=== PATIENT | male | born 1960 | race African-American/Black ===

== ENCOUNTER 2016-10-21 13:19 | Inpatient (IN) ==
[2016-10-21] MEDS ORDERED: SODIUM CHLORIDE 0.9% 1,000 ML IV STA (13:24)
--- NOTE | 2016-10-21 13:33 | Emergency Department Note ---
Syed Matt Brittany, am scribing for, and in the presence of, Lj Tamayo MD 13:32. Belkis Matt James D, MD, personally performed the services described in this documentation, ascribed by Hortensia Lynch in my presence, and it is both accurate and complete 333 . Arrival - Arrival Chief Complaint: Seizure Stated Complaint: altered loc ED Nursing Triage Note: Brought in by EMS-transfer from [facility] for further evaluation of altered LOC and seizure. EMS reports patient was seizing upon their arrival, resp 4bpm. Patient intubated with 7.0ETT 22cm@lip. Mode of Arrival: Stretcher Limitations: Altered Mental Status Source: EMS, RN Notes Reviewed - History of Present Illness HPI Narrative: Patient is a 56 y/o black male presenting to the ED by EMS from [facility] for further evaluation of AMS and Seizures. Per EMS report patient was last seen by family and friends in his normal state around midnight last night. EMS states that upon their arrival to patient he was still seizing and had RR of 4 breaths per minute, unknown time of onset of seizures. Prior to transfer patient was given Thiamine, Dilantin, and Zosyn. En route patient was intubated by EMS. EMS reports that patient has a history significant for ETOH abuse and tobacco smoker about 2 packs per day. In room patient smells of ETOH. Patient is nonverbal and nonreactive to verbal or painful stimuli. Patient has 2 mm minimally reactive pupils. Allergies/Adverse Reactions: Allergies Allergy/AdvReac Type Severity Reaction Status Date / Time No Known Allergies Allergy Verified 10/21/16 13:31 Home Medications: Home Medications Medication Instructions Recorded Confirmed Type No Known Home Medications [No 10/21/16 10/21/16 History Known Home Medications] Review of System - Review of System ROS unobtainable: due to mental status 12 point system: reviewed and no additional remarkable complaints except as stated Medical,Surgical,& Family Hx - Medical History Psychological: History of: Psychiatric/Substance Abuse Tx (ETOH abuse) - Social History Smoking Status: Smoker, status unknown Frequency of Alcohol Use: Frequently Type of Drug Use: Unknown Exam Vital Signs: Vital Signs Temperature 96.0 F L 10/21/16 14:39 Pulse Rate 106 H 10/21/16 16:08 Respiratory Rate 14 10/21/16 16:08 Blood Pressure 172/100 10/21/16 14:39 O2 Sat by Pulse Oximetry 100 10/21/16 16:08 GENERAL: This is a acutely ill appearing black male on mechanical ventilation with endotracheal tube present, in no apparent distress. VITAL SIGNS: Reviewed HEENT: Head is atraumatic and normocephalic. Pupils are 2 mm and equal. Extraocular movements are intact. Oropharynx is benign with moist mucous membranes. Poor dentition. NECK: Neck is soft and supple without tenderness. There are no masses. There is no lymphadenopathy. LUNGS: Lungs are clear to auscultation. Chest rises symmetrically. There is no chest wall tenderness. CV: Heart is regular rate and rhythm without murmurs rubs or gallops. ABDOMEN: Abdomen is soft, nontender to palpation. There are no abdominal abnormal masses palpated. There is no organomegaly. Bowel sounds are present and active. SKIN: Skin is warm and dry. No rash. EXTREMITIES: Patient has full range of motion without tenderness. There is no pedal edema. NEUROLOGIC: Arousable to deep tactile stimulus. Patient has some purposeful movement with painful stimuli. Course - Consultations Consultation #1: Discussed with hospitalist. Patient will be admitted to their service. Time: 14:01 Procedures - EJ/Peripheral Line Neck L Consent Obtained: verbal consent Time Out Performed: Yes Skin Cleansed in Sterile Fashion: Yes Size: 18 IV Secured and Dressing Applied: Yes Patient Tolerated Procedure: well Additional Comments: Blood aspirated without difficulty. IV flushed well. - Foreign Body Removal Consent Obtained: verbal consent Time Out Performed: Yes Site: oral Description of foreign body: other (Free molar from the posterior oropharynx was removed with forceps. This was performed under direct visualization with glide scope.) Sedation/Analgesia: midazolam Technique: removal with forceps Confirmed by:: direct visualization Complications: none Post-procedure exam: normal BP, normal HR, normal O2 sat Neurovascular: no change from pre-procedure Results - Labs CBC & BMP: 10/21/16 14:56 10/21/16 14:56 Lab Results: I have reviewed the patients labs Labs: Laboratory Tests 10/21/16 10/21/16 13:24 14:24 ABG pH 7.196 L* ABG pCO2 51.3 H ABG pO2 89.6 ABG HCO3 17.2 L ABG Total CO2 17.6 L ABG O2 Saturation 93.0 L ABG Base Excess -9.1 L FiO2 100.00 Urine pH 6.0 Ur Specific Rodney 1.009 Urine WBC <1 Laboratory Tests 10/21/16 10/21/16 14:24 14:56 WBC 4.2 Hgb 14.5 Hct 40.6 L Plt Count 175 Urine Opiates Screen Negative Ur Barbiturates Screen Negative Ur Phencyclidine Scrn Negative U Amphetamine/Methamph Negative U Benzodiazepines Scrn Negative U Cocaine Metab Screen Negative U Cannabinoids Screen Negative Laboratory Tests 10/21/16 10/21/16 14:24 14:56 Urine Opiates Screen Negative Ur Barbiturates Screen Negative Phenytoin 9.0 L Ur Phencyclidine Scrn Negative U Amphetamine/Methamph Negative U Benzodiazepines Scrn Negative U Cocaine Metab Screen Negative U Cannabinoids Screen Negative Laboratory Tests 10/21/16 13:24 ABG pH 7.196 L* ABG pCO2 51.3 H ABG pO2 89.6 ABG HCO3 17.2 L ABG Total CO2 17.6 L ABG O2 Saturation 93.0 L ABG Base Excess -9.1 L FiO2 100.00 - EKG EKG results: interpreted by ERMD - Impressions EKG: Sinus tachycardia with rate of 107, nonspecific ST-T wave changes, normal axis. - Diagnostic Findings Procedure: Chest x-ray: image reviewed by me (Opacification of the right hemithorax consistent with aspiration pneumonia), CT: image reviewed by me (CT head: No acute intracranial lesion or hemorrhage.) Critical Care Time Critical Care Time: Yes Total Critical Care Time: 60 Attestation: Patient was placed on Versed infusion. Vent management orders initially written. Foreign body removed from the posterior oropharynx. Disposition Clinical Impression: Seizure, Aspiration into airway, Alcohol abuse, Alcoholism Case discussed with: patient Disposition: Still a Patient Condition: Critical Time of Disposition: 13:35
[2016-10-21] MEDS ORDERED: VECURONIUM 10 MG VIAL IV ONE (13:34)
[2016-10-21] MEDS ORDERED: VECURONIUM 10 MG VIAL IV STA (13:35)
[2016-10-21] MEDS ORDERED: MIDAZOLAM 2 MG/2 ML VIAL ONE (13:50)
--- NOTE | 2016-10-21 13:54 | CT Report ---
Referring physician: Lj Tamayo Exam: CT brain without contrast Date: 10/21/2016 Comparison: 10/21/2016 Reason: Alteration of consciousness Technique: Axial images of the head were obtained without the use of contrast. Total DLP was 942.4 mGy*cm. Findings: No hydrocephalus or midline shift is present. There is no evidence of an acute infarction, recent intracranial hemorrhage or abnormal mass effect. Minimal cerebral atrophy with arterial calcifications. The osseous structures appear intact. The mastoid air cells are clear. Minimal mucosal thickening in the paranasal sinuses. Impression: No acute intracranial abnormality is identified. Minimal atrophy and sinusitis. The CT exam was performed using one or more of the following dose reduction techniques: Automated exposure control and adjustment of the mA and/or kV according to patient size. PROCEDURE INTERPRETED AT [facility] DEPARTMENT OF RADIOLOGY Final Report Signed by: Dr. Juany Cooper
--- NOTE | 2016-10-21 14:03 | XRay Report ---
Exam: XR chest 1V portable Indication: Altered mental status, confusion Comparison study: None available Findings: Cardiac silhouette images are contours appear grossly similar to prior. The endotracheal tube terminates approximately 4 simulations marialuisa, in similar position as prior. Diffuse patchy airspace opacities throughout the right lung are new from the prior study and suggestive of developing infiltrates and/or asymmetric pulmonary edema. The left lung remains relatively clear. There is no pneumothorax. No significant pleural effusion is identified. Osseous structures appear stable from prior. Elevation of the right hemidiaphragm is noted. Impression: Prominent opacity throughout the right lung may represent atelectasis, developing infiltrates or asymmetric pulmonary edema. Stable position of endotracheal tube. PROCEDURE INTERPRETED AT [facility] DEPARTMENT OF RADIOLOGY Final Report Signed by: Amado Payan
[2016-10-21] MEDS: MIDAZOLAM 100 MG in SODIUM CHLORIDE 0.9% 80 ML IV SCH (14:05)
[2016-10-21 14:38] LABS: ABG Base Excess -9.1 MMOL/L (-2.5-2.5); ABG HCO3 17.2 MMOL/L (20-26); ABG PCO2 51.3 MM HG (35-48); ABG PO2 89.6 MM HG (80-95); ABG TCO2 17.6 MMOL/L (23-27); Pt O2 Delivery Device Ventilator
[2016-10-21] MEDS ORDERED: PIPERACILLIN/TAZOBACTAM 3,375 MG in SODIUM CHLORIDE 0.9% 100 ML IV STA (14:42)
[2016-10-21] MEDS ORDERED: ALBUTEROL 2.5 MG/3 ML NEB RESP TX STA (14:43)
[2016-10-21] MEDS ORDERED: DEXAMETHASONE 10 MG/1 ML VIAL IV STA (14:43)
[2016-10-21] MEDS ORDERED: SODIUM CHLORIDE 0.9% 100 ML IV ONE (14:46)
[2016-10-21] MEDS ORDERED: PIPERACILLIN/TAZOBACTAM 3,375 MG VIAL IV ONE (14:46)
[2016-10-21] MEDS ORDERED: DEXAMETHASONE 10 MG/1 ML VIAL ONE (14:46)
[2016-10-21 14:47] LABS: Apearance,Urine CLEAR (Clear); Bilirubin,Urine Negative (Negative); Blood, Urine Small mg/dL (Negative); Glucose,Urine (UA) 150 mg/dL (Negative); Ketones,Urine 5 mg/dL (Negative); Nitrite,Urine Negative (Negative); Protein,Urine Negative; Squamous Epithelial Cell,Urine Occasional /HPF (0-10); Urine Color Straw (Yellow); Urine Specific Gravity 1.009 (1.001-1.035); Urine Urobilinogen < 2.0 EU/DL (0.2-1.0); WBC,Urine <1 /HPF (0-6)
[2016-10-21 14:48] LABS: ABG PH 7.196 (7.35-7.45)
[2016-10-21 14:57] LABS: Barbiturates Screen,Urine Negative (Negative); Benzodiazepines Screen,Urine Negative (Negative); Cannabinoid Screen,Urine Negative (Negative); Opiate Screen,Urine Negative (Negative); Phencyclidine Screen,Urine Negative (Negative)
[2016-10-21 15:11] LABS: Basophils % 0.2 % (0.0-0.8); Hematocrit 40.6 VOL% (42.0-52.0); Hemoglobin 14.5 GM/DL (14.0-18.0); Immature Granulocytes % 0.2 %; Immature Granulocytes Absolute 0.01 #; Lymphocytes # 0.4 10*3/uL (1.4-4.0); Lymphocytes % 8.6 % (21.2-54.2); Mean Corpuscular HGB Conc 35.7 GM/DL (32-36); Mean Corpuscular Hemoglobin 42 PG (27-34); Mean Corpuscular Volume 116.7 FL (87-102); Mean Platelet Volume 9.9 FL (9.6-12.0); Monocytes # 0.1 10*3/uL (0.11-0.8); Monocytes % 2.1 % (1.7-12.7); NRBC # 0.03 10*3/uL; Neutrophils # 3.7 10*3/uL (1.4-7.4); Neutrophils % 88.9 % (38.7-73.9); Platelet Count 175 T/CUMM (130-400); Red Blood Count 3.48 MC/CUMM (3.8-5.5); Red Cell Distribution Width 14.2 % (9.3-17.3); White Blood Count 4.2 T/CUMM (4-12)
--- NOTE | 2016-10-21 15:26 | EKG Report ---
Stationary ECG Study 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
[2016-10-21 15:31] LABS: INR 1.1; PT Patient Result 12.2 SECS; Partial Thromboplastin Time 26.5 SECS (0-40)
[2016-10-21 15:33] LABS: Ammonia 15 UMOL/L (11-32)
--- NOTE | 2016-10-21 15:45 | Hospitalist History & Physical ---
Assessment and Plan (1) Aspiration pneumonia Status: Acute Current Visit: Yes (2) Hypoglycemia Status: Acute Current Visit: Yes (3) Respiratory failure Status: Acute Current Visit: Yes (4) Alcohol abuse Status: Acute Current Visit: Yes (5) Alcoholism Status: Acute Current Visit: Yes (6) Aspiration into airway Status: Acute Current Visit: Yes (7) Seizure Status: Acute Assessment and plan: Plan for this patient will be continue ventilator support for this patient continue with IV antibiotics for what appears to be an aspiration pneumonia. Will consult pulmonary with help for the vent. Will consult neurology for the seizure disorder and I suspect anoxic brain injury. Discussed the care with the family told him that will be 48-72 hours to we know which direction this patient will be heading. He is in critical condition. He is an alcoholic this could have been alcohol withdrawal seizure. He had been sick for a little while and did not seek medical attention according to the information given to the outside facility. Current Visit: Yes History of Present Illness Chief complaint: Transfer from outside facility seizures respiratory failure History of present illness: Mr. Gonzalez is a 56 year old male with only known past medical history significant for a bout with Feliciano Farias years ago presented to our ER as a transfer from outside facility. Patient is a heavy alcoholic he lives with her brother. According to the story I got from family his brother heard a noise and found him on the ground. He went and and found a neighbor to come see the man and when the neighbor came in he was on the floor appearing to actively be seizing. He was had loss of urinary function and they called EMS. When EMS arrived he was still seizing at that time and had a respiratory rate of 4 breaths per minute. Patient has no history of seizures in the past. And we do not know exactly how long he been down. Patient was intubated in the field by EMS. At the outside facility he was given Zosyn saline bolus sodium bicarb total of 4 Ativan an amp of D50 and loaded with Dilantin at 11 AM. I was consulted to admit the patient. Patient is currently on a Versed infusion and unresponsive he has minimally reactive pupils. Home Medications Medication Instructions Recorded Confirmed Type No Known Home Medications [No 10/21/16 10/21/16 History Known Home Medications] Allergies Allergy/AdvReac Type Severity Reaction Status Date / Time No Known Allergies Allergy Verified 10/21/16 13:31 Medical,Surgical,& Family Hx - Medical History Psychological: History of: Psychiatric/Substance Abuse Tx (ETOH abuse) - Surgical History Surgical History: noncontributory (No known surgeries) - Family History Family History: Reports;: Family Cancer, Family Diabetes - Social History Smoking Status: Current every day smoker Frequency of Alcohol Use: Frequently Type of Drug Use: Marijuana ROS unobtainable: due to endotracheal tube, due to mental status Exam - Constitutional Vitals: Period Temp Pulse Resp BP Sys/Wilkerson Pulse Ox Last 24 Hr 93.9 F-96.0 F 109-110 12-12 147-172/100-112 100-100 General appearance: no acute distress (Patient is sedated on the vent) - Head Head exam: Present: normal inspection - Eye Eye exam: Present: other (Pupils are minimal but equal) - ENT ENT exam: Present: other (Patient has ET tube in place patient has poor dentition and patient is bleeding from his gums) - Neck Neck exam: Present: normal inspection - Respiratory Respiratory exam: Present: rhonchi (Diffusely) - Cardiovascular Cardiovascular exam: Present: tachycardia - GI/Abdominal GI/Abdominal exam: Present: normal bowel sounds. Absent: tenderness, rebound - Extremities Exam Extremities exam: Present: normal inspection - Back Exam Back exam: Present: normal inspection - Neurological Exam Neurological exam: Present: altered - Psychiatric Psychiatric exam: Present: other - Skin Skin exam: Present: normal color Results - Labs CBC & BMP: 10/21/16 14:56 Labs: Labs from outside facility sodium 141 potassium 3.7 chloride 99 bicarb 13 creatinine 1.0 BUN 5 calcium 8.9 glucose 52 total bili 0.7 total protein 6.7 albumin 3.7 alk phos 104 a LT 35 AST 77 white count 13.95 at outside facility on our labs is 4.2 hemoglobin is 14.6 and hematocrit 41.3 platelet count 221
[2016-10-21] MEDS ORDERED: PHENYTOIN INJ 500 MG in SODIUM CHLORIDE 0.9% 100 ML IV STA (15:47)
[2016-10-21 15:51] LABS: Alanine Aminotransferase 28 U/L (16-61); Albumin 2.8 G/DL (3.4-5.0); Alkaline Phosphatase 86 U/L (45-117); Aspartate Amino Transferase 56 U/L (0-37); Blood Urea Nitrogen 5 MG/DL (7-18); Calcium 7.4 MG/DL (8.5-10.1); Glucose 161 MG/DL (74-106); Osmolality,Calculated 291.4 MOS/KG (273-304); Potassium 3.6 MMOL/L (3.5-5.1); Sodium 147 MMOL/L (136-145); Thyroid Stimulating Hormone 0.341 uIU/ml (0.358-3.74); Total Protein 5.5 G/DL (6.4-8.3)
[2016-10-21] MEDS ORDERED: ONDANSETRON 4 MG/2 ML VIAL IV PRN (15:51)
[2016-10-21] MEDS ORDERED: ALBUTEROL 2.5 MG/3 ML NEB RESP TX PRN (15:51)
[2016-10-21] MEDS ORDERED: ALBUTEROL/IPRATROPIUM 3 ML NEB RESP TX PRN (15:51)
[2016-10-21] MEDS ORDERED: PHENYTOIN 250 MG/5 ML VIAL IV ONE (15:52)
[2016-10-21 15:59] LABS: ABG Base Excess -7.1 MMOL/L (-2.5-2.5); ABG HCO3 18.7 MMOL/L (20-26); ABG Oxygen Saturation 96.3 % (95-100); ABG PH 7.271 (7.35-7.45); ABG TCO2 17.3 MMOL/L (23-27)
[2016-10-21] MEDS: SODIUM CHLORIDE 0.9% 1,000 ML IV SCH (19:00)
[2016-10-21] MEDS: ENOXAPARIN 40 MG/0.4 ML SYRINGE SUBCUT SCH (20:17)
[2016-10-21] MEDS: PIPERACILLIN/TAZOBACTAM 3,375 MG in SODIUM CHLORIDE 0.9% 100 ML IV SCH (23:45)
[2016-10-22] MEDS: PHENYTOIN 100 MG/2 ML VIAL IV SCH ×4 (00:03→23:45)
[2016-10-22 04:01] LABS: ABG Base Excess -5.7 MMOL/L (-2.5-2.5); ABG HCO3 18.3 MMOL/L (20-26); ABG Oxygen Saturation 99.5 % (95-100); ABG PCO2 31.6 MM HG (35-48); ABG PO2 245.2 MM HG (80-95); ABG TCO2 19.2 MMOL/L (23-27); Allen Test Positive; Pt O2 Delivery Device Ventilator
[2016-10-22] MEDS: PIPERACILLIN/TAZOBACTAM 3,375 MG in SODIUM CHLORIDE 0.9% 100 ML IV SCH ×3 (06:16→23:45)
--- NOTE | 2016-10-22 06:29 | Pulmonology Consult Note ---
Assessment and Plan (1) Seizure Status: Acute Assessment and plan: The patient was found obtunded and apparently had a seizure. Neurology will evaluate. Current Visit: Yes (2) Alcoholism Status: Acute Assessment and plan: Patient apparently has a history of alcohol abuse. Current Visit: Yes (3) Hypoglycemia Status: Acute Assessment and plan: Patient's glucoses better now. Current Visit: Yes (4) Respiratory failure Status: Acute Assessment and plan: Patient is on the ventilator with pneumonia now. We will proceed with a bronchoscopy. Current Visit: Yes (5) Aspiration pneumonia Status: Acute Assessment and plan: Patient has a consolidated right lower lobe and looks like he has aspiration pneumonia. Current Visit: Yes History of Present Illness Chief complaint: Ventilator History of present illness: Mr. Gonzalez is a 56 year old black male that apparently has a history of alcohol abuse was found at home poorly responsive. He apparently had been having seizures. Paramedics were called and he was ultimately intubated. He is now on the ventilator in the ICU. He does have right lower lobe consolidation. He has been responding and has required restraints. His oxygenation is better on the ventilator. He never has had seizures before. 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 He apparently is a smoker also. Home Medications Medication Instructions Recorded Confirmed Type No Known Home Medications [No 10/21/16 10/21/16 History Known Home Medications] Allergies Allergy/AdvReac Type Severity Reaction Status Date / Time No Known Allergies Allergy Verified 10/21/16 13:31 ROS unobtainable: due to endotracheal tube (Unable to get any further history.) Exam (Pulmonay) H&P - Constitutional Vitals: Period Temp Pulse Resp BP Sys/Wilkerson Pulse Ox Last 24 Hr 96.9 F-98.2 F 97-108 12-25 87-150/56-100 96-100 General appearance: normal weight, no acute distress, other (Patient looks stable on the ventilator.) - Head Head exam: Present: normal inspection - Eye Eye exam: Present: other (He has bilateral arcus). Absent: scleral icterus Pupils: Present: dilated - ENT ENT exam: Present: normal exam, other (ET tube is in good position) - Neck Neck exam: Absent: lymphadenopathy, thyromegaly - Respiratory Respiratory exam: Present: decreased breath sounds (He has decreased breath sounds in the right base), rales, rhonchi - Cardiovascular Cardiovascular exam: Present: regular rate and rhythm, tachycardia. Absent: gallop, systolic murmur - GI/Abdominal GI/Abdominal exam: Present: normal bowel sounds, soft. Absent: ascites, organomegaly, tenderness - Extremities Exam Extremities exam: Absent: calf tenderness, edema - Neurological Exam Neurological exam: Present: other (He still has sedation on board) - Skin Skin exam: Present: warm, dry Medical,Surgical,& Family Hx - Medical History Psychological: History of: Psychiatric/Substance Abuse Tx (ETOH abuse) - Family History Family History: Reports;: Family Cancer, Family Diabetes - Social History Smoking Status: Smoker, status unknown Frequency of Alcohol Use: Frequently Type of Drug Use: Unknown Results - Labs CBC & BMP: 10/21/16 14:56 10/21/16 14:56 Labs: His PO2 is 245 with a PCO2 31 and a pH of 7.38 - Diagnostic Findings Procedure: Chest x-ray: image reviewed by me, report reviewed by me (Chest x- ray shows a consolidated right lower lobe)
--- NOTE | 2016-10-22 07:15 | XRay Report ---
Exam: XR chest 1V portable Indication: intubated, ventilator Comparison study: 10/21/2016 Findings: Endotracheal tube and esophagogastric tube are in similar positions. Cardiomediastinal silhouette appears within normal limits. There has been significant decrease in opacities throughout the right lung. The left lung remains probably clear with minimal basilar opacities. There is no pneumothorax. Osseous structures appear stable. Impression: Stable position of endotracheal and esophagogastric tubes. Markedly improved aeration throughout the right lung with residual perihilar and basilar opacities may represent atelectasis and/or underlying interstitial edema changes and residual small right pleural effusion. PROCEDURE INTERPRETED AT [facility] DEPARTMENT OF RADIOLOGY Final Report Signed by: Amado Payan
[2016-10-22 07:58] LABS: Basophils % 0.1 % (0.0-0.8); Hematocrit 36.5 VOL% (42.0-52.0); Hemoglobin 13.4 GM/DL (14.0-18.0); Immature Granulocytes % 1.3 %; Immature Granulocytes Absolute 0.16 #; Lymphocytes # 0.6 10*3/uL (1.4-4.0); Lymphocytes % 4.6 % (21.2-54.2); Mean Corpuscular HGB Conc 36.7 GM/DL (32-36); Mean Corpuscular Hemoglobin 42 PG (27-34); Mean Corpuscular Volume 114.8 FL (87-102); Mean Platelet Volume 10.3 FL (9.6-12.0); Monocytes # 0.3 10*3/uL (0.11-0.8); Monocytes % 2.5 % (1.7-12.7); Neutrophils # 11.5 10*3/uL (1.4-7.4); Neutrophils % 91.5 % (38.7-73.9); Platelet Count 121 T/CUMM (130-400); Red Blood Count 3.18 MC/CUMM (3.8-5.5); Red Cell Distribution Width 14.1 % (9.3-17.3); White Blood Count 12.6 T/CUMM (4-12)
[2016-10-22] MEDS: SODIUM CHLORIDE 0.9% 1,000 ML IV SCH ×2 (08:11→20:57)
[2016-10-22 08:18] LABS: Band Neutrophils 16 % (0-10); Hypochromasia 1+; Lymphocytes 3 % (20-55); Metamyelocytes 1 %; Myelocytes 1 %; Platelet Estimate Normal; Segmented Neutrophils 78 % (50-85); Total Cells Counted 100
[2016-10-22 08:19] LABS: Ovalocytes Slight
--- NOTE | 2016-10-22 08:24 | Operative Note ---
Date of procedure: 10/22/16 Pre-op diagnosis: Aspiration pneumonia Post-op diagnosis: same Procedure: The patient is a 56-year-old black man that came in on the ventilator. He has right lower lobe consolidation and likely aspirated. Will proceed with a bronchoscope to clear airways. Procedure: Patient is on the ventilator and is sedated with Versed. The fiberoptic bronchoscope was passed to the ET tube into the airways. The bronchopulmonary segments were identified and specimens obtained. Findings: The ET tube is in good position and the trachea. The main bronchi are unremarkable. There are some thick secretions in the right lower lobe that were washed and cleared and sent for culture. There is no signs of foreign bodies or obstruction. The right upper lobe, right middle lobe, and right lower lobe are all open. The left upper lobe, left lower lobe, and lingular open. Once the airways were clear the procedure was stopped. He coughed a lot but tolerated it well. Impression: Right lower lobe pneumonia from aspiration. Plan: We will continue antibiotics and respiratory therapy. Anesthesia: conscious sedation Surgeon / Physician: Nishant Mishra Estimated blood loss: none Specimens: other (Washings were sent for culture) Condition: critical Disposition: ICU Results - Labs CBC & BMP: 10/22/16 07:53 10/21/16 14:56 Discharge Plan - Discharge Medications No Action No Known Home Medications [No Known Home Medications] - Follow Up or Referral - Forms/Instructions
[2016-10-22 08:33] LABS: Albumin 2.4 G/DL (3.4-5.0); Bilirubin,Total 1.3 MG/DL (0.2-1.0); Calcium 7.7 MG/DL (8.5-10.1); Magnesium 1.9 MG/DL (1.8-2.4); Osmolality,Calculated 291.6 MOS/KG (273-304); Potassium 4.1 MMOL/L (3.5-5.1); Total Protein 5.1 G/DL (6.4-8.3)
[2016-10-22] MEDS ORDERED: THIAMINE 200 MG/2 ML VIAL IV SCH (09:00)
[2016-10-22] MEDS ORDERED: PANTOPRAZOLE 40 MG TABLET PO SCH (09:00)
--- NOTE | 2016-10-22 09:11 | Hospitalist Progress Note ---
Assessment and Plan (1) Aspiration pneumonia Status: Acute Assessment and plan: Aspiration pneumonia suspected and has been on Zosyn noted elevated white count today we will continue to monitor patient is status post bronchoscopy Current Visit: Yes (2) Respiratory failure Status: Acute Assessment and plan: Followed by Dr. Mishra and oxygenating well Current Visit: Yes (3) Seizure Status: Acute Assessment and plan: Patient has a reported seizure on presentation without any past history of seizure disorder I am not sure it was because of hypoxia. Neurology to evaluate patient Current Visit: Yes (4) Alcohol abuse Status: Acute Assessment and plan: Patient with history of alcohol abuse. He has been on sedation at present. Ativan order is in place for withdrawal symptoms Current Visit: Yes Hospitalist: Subjective Interval history: Mr. Gonzalez is a 56-year-old male who was on ventilator and sedated and unable to provide subjective information. Chart review he has history of Feliciano Farias years ago and history of alcohol abuse he was admitted with the unresponsiveness and had seizure he required intubation and placed on Augmentin mechanical ventilator. No history of past seizure. He was noted to have opacified right lung with atelectasis which was improved yesterday on x-ray. He underwent bronchoscopy performed by Dr. Mishra with the clearing of the airways. He has been afebrile Exam - Constitutional Vitals: Period Temp Pulse Resp BP Sys/Wilkerson Pulse Ox Last 24 Hr 96.9 F-98.2 F 97-108 12-25 87-150/56-100 96-100 - Respiratory Respiratory exam: Present: clear to auscultation bilaterally (equal air entry). Absent: rhonchi - Cardiovascular Cardiovascular exam: Present: regular rate and rhythm. Absent: tachycardia - GI/Abdominal GI/Abdominal exam: Present: normal bowel sounds, soft. Absent: distended - Extremities Exam Extremities exam: Absent: edema - Neurological Exam Neurological exam: Present: other (on ventilator sedated) Results - Labs CBC & BMP: 10/22/16 07:53 10/22/16 07:53 Lab Results: I have reviewed the past 24 hour labs
[2016-10-22] MEDS ORDERED: DEXTROSE 50% 25 GM/50 ML VIAL IV PRN (09:25)
[2016-10-22] MEDS ORDERED: GLUCAGON 1 MG VIAL IM PRN (09:25)
[2016-10-22] MEDS: FOLIC ACID 1 MG TABLET PO SCH (11:34)
[2016-10-22] MEDS: MULTIVITAMIN (CENTRUM) TABLET PO SCH (11:34)
[2016-10-22] MEDS: THIAMINE 100 MG TABLET PO SCH (11:34)
[2016-10-22] MEDS: PANTOPRAZOLE 40 MG VIAL IV SCH (11:54)
[2016-10-22] MEDS: INSULIN REGULAR 100 UNIT/ML SUBCUT SCH ×2 (12:41→18:24)
--- NOTE | 2016-10-22 15:56 | Neurology Consult Note ---
History of Present Illness History of present illness: Patient is unable to provide me any history. History basically obtained from the chart. Mr. Gonzalez is a 56 year old -[place] gentleman that apparently has a history of alcohol abuse was found at home poorly responsive. He apparently had been having seizures. The details of seizures are not available. Paramedics were called and he was ultimately intubated. He is now on the ventilator in the ICU. He does have pneumonia as well. He has been responding and has required restraints. His oxygenation is better on the ventilator. He never has had seizures before. 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 He apparently is a smoker also. No further history is available. He was loaded with Dilantin in the ER and continued. CT of the head revealed no acute abnormalities. Home Medications Medication Instructions Recorded Confirmed Type No Known Home Medications [No 10/21/16 10/21/16 History Known Home Medications] Allergies Allergy/AdvReac Type Severity Reaction Status Date / Time No Known Allergies Allergy Verified 10/21/16 13:31 ROS unobtainable: due to endotracheal tube Medical,Surgical,& Family Hx - Medical History Psychological: History of: Psychiatric/Substance Abuse Tx (ETOH abuse) - Family History Family History: Reports;: Family Cancer, Family Diabetes - Social History Smoking Status: Current every day smoker Frequency of Alcohol Use: Frequently Type of Drug Use: Unknown Exam - Constitutional Vitals: Period Temp Pulse Resp BP Sys/Wilkerson Pulse Ox Last 24 Hr 96.9 F-98.2 F 93-114 12-29 82-150/56-119 96-100 Exam: GENERAL: Patient is in no acute distress. NECK: Neck is supple. There is no JVD. No carotid bruits present. No thyroid masses. CVS: First and second heart sounds are normal. There is no S3 present. Regular rate and rhythm. RESPIRATORY: Lungs are clear to auscultation without any rales or rhonchi. ABDOMEN: Soft and non-tender. Bowel sounds are present. There is no hepatosplenomegaly. EXT: There is no palpable edema. Peripheral pulses are present. Skin: No rashes Central Nervous system: General: Sedated on vent Speech: None Comprehension: None Facial expressions: Normal Cranial Nerves: Pupils are equally reactive to light. Doll's head eye movements are positive. No facial asymmetry is seen. Gag is intact. Motor: Bulk and Tone is normal. Strength cannot be assessed Sensory: Cannot be assessed Reflexes: 1+ and symmetrical Cerebellar function: Cannot be assessed Toes: Equivocal Gait: Cannot be assessed Results - Labs CBC & BMP: 10/22/16 07:53 10/22/16 07:53 Assessment and Plan (1) New onset seizure Status: Acute Assessment and plan: This could very well be alcohol induced We will go ahead and do EEG if it is not done already. Continue Dilantin for now Check Dilantin level in the morning Thank you for the consult Current Visit: Yes
[2016-10-22] MEDS ORDERED: SODIUM CHLORIDE 0.9% 250 ML IV ONE (18:08)
[2016-10-22] MEDS: ENOXAPARIN 40 MG/0.4 ML SYRINGE SUBCUT SCH (18:24)
[2016-10-22] MEDS: MIDAZOLAM 100 MG in SODIUM CHLORIDE 0.9% 80 ML IV SCH (18:31)
[2016-10-22] MEDS: LORazepam 2 MG/1 ML VIAL IV PRN (19:47)
[2016-10-23] MEDS: INSULIN REGULAR 100 UNIT/ML SUBCUT SCH ×5 (00:29→23:29)
[2016-10-23] MEDS: LORazepam 2 MG/1 ML VIAL IV PRN ×2 (01:52→07:04)
[2016-10-23 03:34] LABS: ABG Base Excess -0.4 MMOL/L (-2.5-2.5); ABG HCO3 21.3 MMOL/L (20-26); ABG Oxygen Saturation 97.9 % (95-100); ABG PH 7.515 (7.35-7.45); ABG PO2 113.2 MM HG (80-95); ABG TCO2 22.1 MMOL/L (23-27); Allen Test Positive; Pt O2 Delivery Device Ventilator
[2016-10-23] MEDS ORDERED: SODIUM CHLORIDE 0.9% 250 ML IV ONE (03:53)
[2016-10-23 05:48] LABS: Basophils % 0.1 % (0.0-0.8); Hematocrit 31.9 VOL% (42.0-52.0); Immature Granulocytes % 4.4 %; Immature Granulocytes Absolute 0.64 #; Lymphocytes # 1.1 10*3/uL (1.4-4.0); Lymphocytes % 7.3 % (21.2-54.2); Mean Corpuscular HGB Conc 37.3 GM/DL (32-36); Mean Corpuscular Hemoglobin 42 PG (27-34); Mean Corpuscular Volume 111.9 FL (87-102); Mean Platelet Volume 11.3 FL (9.6-12.0); Monocytes # 0.5 10*3/uL (0.11-0.8); Monocytes % 3.4 % (1.7-12.7); NRBC # 0.03 10*3/uL; Neutrophils # 12.5 10*3/uL (1.4-7.4); Neutrophils % 84.8 % (38.7-73.9); Platelet Count 100 T/CUMM (130-400); Red Blood Count 2.85 MC/CUMM (3.8-5.5); Red Cell Distribution Width 14.2 % (9.3-17.3); White Blood Count 14.7 T/CUMM (4-12)
[2016-10-23 05:49] LABS: Hemoglobin 11.9 GM/DL (14.0-18.0)
[2016-10-23 05:54] LABS: Band Neutrophils 15 % (0-10); Lymphocytes 8 % (20-55); Metamyelocytes 2 %; Segmented Neutrophils 74 % (50-85); Total Cells Counted 100
[2016-10-23 05:55] LABS: Platelet Estimate Adequate; Target Cells Few
[2016-10-23 06:01] LABS: Calcium 7.8 MG/DL (8.5-10.1); Magnesium 2.1 MG/DL (1.8-2.4); Potassium 3.2 MMOL/L (3.5-5.1); Prealbumin 9.1 MG/DL (20-40)
[2016-10-23] MEDS: PIPERACILLIN/TAZOBACTAM 3,375 MG in SODIUM CHLORIDE 0.9% 100 ML IV SCH ×3 (06:34→23:49)
--- NOTE | 2016-10-23 07:40 | Pulmonology Progress Note ---
Pulmonary - PN: Subj Interval history: Patient is a 56-year-old black man that was found unresponsive at home. He is felt to be having seizures. He does have a history of alcohol abuse. He had to be intubated. He was felt that I have aspirated his right lower lobe pneumonia. His bronchoscopy did not show a lot of particulate matter or any obstruction. He is fairly stable on the ventilator and his oxygenation is better. He has not had any definite seizures. He is fairly stable at present. Exam (Progress Note) - Constitutional Vitals: Period Temp Pulse Resp BP Sys/Wilkerson Pulse Ox Last 24 Hr 96.9 F-98.3 F 87-114 12-28 70-148/49-119 92-100 Exam: General appearance: normal weight, no acute distress, other (Patient looks stable on the ventilator. He is responding a little better.) - Head Head exam: Present: normal inspection - Eye Eye exam: Present: other (He has bilateral arcus). Absent: scleral icterus Pupils: Present: dilated - ENT ENT exam: Present: normal exam, other (ET tube is in good position) - Neck Neck exam: Absent: lymphadenopathy, thyromegaly - Respiratory Respiratory exam: Present: He has fairly good breath sounds bilaterally with mild rhonchi bilaterally. - Cardiovascular Cardiovascular exam: Present: regular rate and rhythm. Absent: gallop, systolic murmur - GI/Abdominal GI/Abdominal exam: Present: normal bowel sounds, soft. Absent: ascites, organomegaly, tenderness - Extremities Exam Extremities exam: Absent: calf tenderness, edema - Neurological Exam Neurological exam: Present: other (He still has sedation on board. He does move around a little.) - Skin Skin exam: Present: warm, dry Results - Labs CBC & BMP: 10/23/16 04:54 10/23/16 04:54 Labs: PO2 is 113 on 40%. His PCO2 is 27 with a pH of 7.51 - Diagnostic Findings Procedure: Chest x-ray: image reviewed by me, report reviewed by me (Chest x- ray still shows right lower lobe infiltrate but is a little better.) Assessment and Plan (1) Seizure Status: Acute Assessment and plan: The patient was found obtunded and apparently had a seizure. Neurology will evaluate. He is getting EEG and is on Dilantin. Current Visit: Yes (2) Alcoholism Status: Acute Assessment and plan: Patient apparently has a history of alcohol abuse. Current Visit: Yes (3) Hypoglycemia Status: Resolved Assessment and plan: Patient's glucoses better now. He has not had any problems with hypoglycemia now Current Visit: No (4) Respiratory failure Status: Acute Assessment and plan: Patient is on the ventilator with pneumonia now. His oxygenation is stable. Will start weaning trials. Current Visit: Yes (5) Aspiration pneumonia Status: Acute Assessment and plan: Patient has a consolidated right lower lobe and will continue with antibiotics. So far his cultures are negative. Current Visit: Yes
--- NOTE | 2016-10-23 08:37 | XRay Report ---
Portable chest Date: 10/23/2016 Clinical history: Intubation Comparison: 10/22/2016 Technique: Portable AP sitting chest Findings: The heart is normal in size with stable support devices. Reduced parenchymal findings in the right mid-lower lung zone with minimally small right pleural effusion. More stable findings at left lung base. Degenerative changes are noted. Impression: Stable support devices. Improved infiltration/edema/atelectasis in the right lung with minimally smaller right pleural effusion. More stable findings at left lung base. PROCEDURE INTERPRETED AT [facility] DEPARTMENT OF RADIOLOGY Final Report Signed by: Dr. Juany Cooper
[2016-10-23] MEDS: PHENYTOIN 100 MG/2 ML VIAL IV SCH ×3 (09:16→23:50)
[2016-10-23] MEDS: MULTIVITAMIN (CENTRUM) TABLET PO SCH (09:17)
[2016-10-23] MEDS: FOLIC ACID 1 MG TABLET PO SCH (09:17)
[2016-10-23] MEDS: SODIUM CHLORIDE 0.9% 1,000 ML IV SCH ×3 (09:17→23:28)
[2016-10-23] MEDS: THIAMINE 100 MG TABLET PO SCH (09:17)
[2016-10-23] MEDS: PANTOPRAZOLE 40 MG VIAL IV SCH (09:17)
[2016-10-23] MEDS: MIDAZOLAM 100 MG in SODIUM CHLORIDE 0.9% 80 ML IV SCH ×2 (09:18→16:14)
--- NOTE | 2016-10-23 09:44 | Hospitalist Progress Note ---
Assessment and Plan (1) Aspiration pneumonia Status: Acute Assessment and plan: Aspiration pneumonia suspected and has been on Zosyn noted. Blood c/s and brochial wash negative for organism. Elevated white count again today little wosre afebrile . cont to watch Current Visit: Yes (2) Respiratory failure Status: Acute Assessment and plan: Followed by Dr. Mishra and oxygenating well. Current Visit: Yes (3) Seizure Status: Acute Assessment and plan: Patient has a reported seizure on presentation without any past history of seizure disorder Dr. Radha ron. Dilanti level therapeutic range. EEG was done this AM Current Visit: Yes (4) Alcohol abuse Status: Acute Assessment and plan: Patient with history of alcohol abuse. He has been on sedation at present. Ativan order is in place for withdrawal symptoms Current Visit: Yes Hospitalist: Subjective Interval history: Mr. Gonzalez is a 56-year-old male who was on ventilator and sedated and unable to provide subjective information. Pt has has history of [place] Farias years ago and history of alcohol abuse he was admitted with the unresponsiveness and had seizure he required intubation and placed on mechanical ventilator. No history of past seizure. He was noted to have opacified right lung with atelectasis. He underwent bronchoscopy performed by Dr. Mishra with the clearing of the airways. CXR was after [facility]. He has been afebrile. He was responding and moving required restrain and sedation. At present sedated and Exam - Constitutional Vitals: Period Temp Pulse Resp BP Sys/Wilkerson Pulse Ox Last 24 Hr 96.9 F-98.3 F 87-123 12-28 70-148/49-86 92-100 General appearance: no acute distress (on mech vent) - Respiratory Respiratory exam: Present: clear to auscultation bilaterally (Decrease air entry right base). Absent: rales, rhonchi - Cardiovascular Cardiovascular exam: Present: regular rate and rhythm. Absent: tachycardia - GI/Abdominal GI/Abdominal exam: Present: normal bowel sounds, tenderness, soft - Extremities Exam Extremities exam: Present: edema. Absent: normal inspection Results - Labs CBC & BMP: 10/23/16 04:54 10/23/16 04:54 Lab Results: I have reviewed the past 24 hour labs
--- NOTE | 2016-10-23 10:49 | Physician Query Form ---
CLICK EDIT DOCUMENT TO SELECT QUERY ANSWER --> OK --> SIGN Mar Peña RN, CCDS Certified Clinical Chief Pharmacist W) [phone] (f) [phone] [email or web address] PROVIDERS: Make your selection(s) from the choices in EACH section by typing an "x" and enter comments in the comment section. Please use your independent medical judgment in providing your response. This request does not imply that any particular answer is desired or expected. CLINICAL INDICATORS: (Providers should not edit this section) The medical record indicates that the patient was admitted with new onset of seizures, respiratory failure, temp of 93.9, mainly tachycardia, WBC of 12.6#, Bands increased to 16% on the 16, and the patient is on Piperacillin. Please clarify which, if any, of the following is the etiology of the above symptoms and treatment rendered: ( ) Septic Shock (severe sepsis with hypotension) ( ) Severe Sepsis (sepsis with acute organ failure) - Please specify type acute organ failure: ( ) Sepsis due to a localized infection, please specify site: ( ) Sepsis due to a device, implant or graft, please specify: ( ) Localized infection only, without systemic illness, please specify site: ( ) Bacteremia (abnormal lab finding only, does not indicate systemic illness) ( ) Other condition, please specify: ( x) Clinically unable to determine Criteria for Sepsis (SIRS due to an infection) should be based on 2 or more of the following being present: Temperature > 101F or < 96.8F WBC > 12,000 or < 4,000, or > 10% bands Tachycardia HR > 90 beats/minute Tachypnea RR > 20 breaths/minute or PaCO2 > 32mmHg Lactate level > 2.0 mmol/L (>4 is equivalent to severe sepsis) Altered Mental Status Mottling of skin or prolonged capillary refill Non-diabetic hyperglycemia (blood sugar >120 mg/dl) Other evidence of acute organ failure associated with sepsis ( severe sepsis) COMMENTS: Use of terms such as suspected, likely, or probable (associated with a specific diagnosis that is being evaluated, monitored, or treated as if it exists) are acceptable and can be restated in the discharge summary if not ruled out. MTDD
--- NOTE | 2016-10-23 11:33 | Neurology Progress Note ---
Neurology - PN : Subjective Interval history: Pt seems to be ok. No more seizures reported of any kind. EEG is pending. Pt is comfortable on vent. Exam (Progress Note) - Constitutional Vitals: Period Temp Pulse Resp BP Sys/Wilkerson Pulse Ox Last 24 Hr 97.1 F-98.3 F 87-123 12-28 70-148/49-86 92-100 Exam: GENERAL: Patient is in no acute distress. NECK: Neck is supple. There is no JVD. No carotid bruits present. No thyroid masses. CVS: First and second heart sounds are normal. There is no S3 present. Regular rate and rhythm. RESPIRATORY: Lungs are clear to auscultation without any rales or rhonchi. ABDOMEN: Soft and non-tender. Bowel sounds are present. There is no hepatosplenomegaly. EXT: There is no palpable edema. Peripheral pulses are present. Skin: No rashes Central Nervous system: General: Sedated on vent Speech: None Comprehension: None Facial expressions: Normal Cranial Nerves: Pupils are equally reactive to light. Doll's head eye movements are positive. No facial asymmetry is seen. Gag is intact. Motor: Bulk and Tone is normal. Strength cannot be assessed Sensory: Cannot be assessed Reflexes: 1+ and symmetrical Cerebellar function: Cannot be assessed Toes: Equivocal Gait: Cannot be assessed Results - Labs CBC & BMP: 10/23/16 04:54 10/23/16 04:54 Assessment and Plan (1) New onset seizure Status: Acute Assessment and plan: This could very well be alcohol induced Dilantin level is 15.3. Cont supportive management Current Visit: Yes
[2016-10-23] MEDS: ENOXAPARIN 40 MG/0.4 ML SYRINGE SUBCUT SCH (18:16)
[2016-10-24] MEDS: MIDAZOLAM 100 MG in SODIUM CHLORIDE 0.9% 80 ML IV SCH ×2 (00:51→15:53)
[2016-10-24 03:22] LABS: ABG Base Excess -0.4 MMOL/L (-2.5-2.5); ABG HCO3 24.1 MMOL/L (20-26); ABG PCO2 30.4 MM HG (35-48); ABG PH 7.476 (7.35-7.45); ABG TCO2 20.1 MMOL/L (23-27); Allen Test Positive; Pt O2 Delivery Device Ventilator
[2016-10-24] MEDS: INSULIN REGULAR 100 UNIT/ML SUBCUT SCH ×4 (05:29→23:34)
[2016-10-24 05:32] LABS: Calcium 7.9 MG/DL (8.5-10.1); Osmolality,Calculated 299.9 MOS/KG (273-304); Potassium 2.9 MMOL/L (3.5-5.1)
[2016-10-24] MEDS: POTASSIUM CHLORIDE RIDER 10 MEQ in PREMIX 1 EACH IV PRN ×5 (06:09→10:31)
[2016-10-24] MEDS: PIPERACILLIN/TAZOBACTAM 3,375 MG in SODIUM CHLORIDE 0.9% 100 ML IV SCH ×3 (06:09→23:00)
--- NOTE | 2016-10-24 06:27 | Pulmonology Progress Note ---
Pulmonary - PN: Subj Interval history: Patient is a 56-year-old black man that was found unresponsive at home. He is felt to be having seizures. He does have a history of alcohol abuse. He had to be intubated. He was felt that I have aspirated his right lower lobe pneumonia. His bronchoscopy did not show a lot of particulate matter or any obstruction. He is fairly stable on the ventilator and his oxygenation is better. He has not had any definite seizures. He has started to do some CPAP trials although he does get a little anxious still. His chest x-ray is improving. His oxygenation is better. His potassium is low and he will get replacement. Exam (Progress Note) - Constitutional Vitals: Period Temp Pulse Resp BP Sys/Wilkerson Pulse Ox Last 24 Hr 97.1 F-98.9 F 81-123 12-25 74-148/53-86 98-100 Exam: General appearance: normal weight, no acute distress, other (Patient looks stable on the ventilator. He is responding a little better.) - Head Head exam: Present: normal inspection - Eye Eye exam: Present: other (He has bilateral arcus). Absent: scleral icterus Pupils: Present: dilated - ENT ENT exam: Present: normal exam, other (ET tube is in good position) - Neck Neck exam: Absent: lymphadenopathy, thyromegaly - Respiratory Respiratory exam: Present: His lungs have good breath sounds and he sounds a little better with less rhonchi. - Cardiovascular Cardiovascular exam: Present: regular rate and rhythm. Absent: gallop, systolic murmur - GI/Abdominal GI/Abdominal exam: Present: normal bowel sounds, soft. Absent: ascites, organomegaly, tenderness - Extremities Exam Extremities exam: Absent: calf tenderness, edema - Neurological Exam Neurological exam: Present: other (He still has sedation on board. He does move around a little.) - Skin Skin exam: Present: warm, dry Results - Labs CBC & BMP: 10/23/16 04:54 10/24/16 04:47 Labs: PO2 is 120 with a PCO2 of 30 and a pH of 7.47 - Diagnostic Findings Procedure: Chest x-ray: image reviewed by me, report reviewed by me (Chest x- ray still shows mild right lower lobe infiltrate but is better) Assessment and Plan (1) Seizure Status: Acute Assessment and plan: The patient was found obtunded and apparently had a seizure. Neurology will evaluate. He is getting EEG and is on Dilantin. He has not had any further seizures. Current Visit: Yes (2) Alcoholism Status: Acute Assessment and plan: Patient apparently has a history of alcohol abuse. Current Visit: Yes (3) Respiratory failure Status: Acute Assessment and plan: Patient is on the ventilator with pneumonia now. His oxygenation is stable. Will continue with weaning trials. Current Visit: Yes (4) Aspiration pneumonia Status: Acute Assessment and plan: Patient has a consolidated right lower lobe and will continue with antibiotics. He has gram-negative rods on his cultures. Current Visit: Yes
--- NOTE | 2016-10-24 08:18 | Hospitalist Progress Note ---
Assessment and Plan (1) Seizure Status: Acute Current Visit: Yes (2) Aspiration into airway Status: Acute Current Visit: Yes (3) Alcoholism Status: Acute Current Visit: Yes (4) Aspiration pneumonia Status: Acute Current Visit: Yes (5) Respiratory failure Status: Acute Current Visit: Yes (6) New onset seizure Status: Acute Current Visit: Yes Hospitalist: Subjective Interval history: No significant change overnight. No seizure activity has been noted. He still intubated and sedated. He is undergoing CPAP trials at this time. Assessment and plan 10/24/2016: Possible seizures with aspiration pneumonia Respiratory failure and mechanical ventilation Alcohol abuse Hypokalemia Patient is undergoing CPAP trial. Continue current management. His blood cultures are negative. Bronchial washing cultures grew gram-negative rods. He' s currently on Zosyn which we will continue. No significant changes are being made today except for supplementing his potassium. Exam - Constitutional Vitals: Period Temp Pulse Resp BP Sys/Wilkerson Pulse Ox Last 24 Hr 97.2 F-98.9 F 81-105 12-24 74-132/53-83 98-100 Exam: General appearance: no acute distress (on mech vent) - Respiratory Respiratory exam: Present: clear to auscultation bilaterally (Decrease air entry right base). Absent: rales, rhonchi - Cardiovascular Cardiovascular exam: Present: regular rate and rhythm. Absent: tachycardia - GI/Abdominal GI/Abdominal exam: Present: normal bowel sounds, tenderness, soft - Extremities Exam Extremities exam: Present: edema. Absent: normal inspection Results - Labs CBC & BMP: 10/23/16 04:54 10/24/16 04:47 Lab Results: I have reviewed the past 24 hour labs
[2016-10-24] MEDS: PHENYTOIN 100 MG/2 ML VIAL IV SCH ×3 (08:21→23:43)
[2016-10-24] MEDS: THIAMINE 100 MG TABLET PO SCH (08:28)
[2016-10-24] MEDS: PANTOPRAZOLE 40 MG VIAL IV SCH (08:28)
[2016-10-24] MEDS: MULTIVITAMIN (CENTRUM) TABLET PO SCH (08:28)
[2016-10-24] MEDS: FOLIC ACID 1 MG TABLET PO SCH (08:28)
[2016-10-24] MEDS: POTASSIUM CHLORIDE 20 MEQ/15 ML UDCUP NG SCH ×2 (08:41→21:34)
--- NOTE | 2016-10-24 09:25 | XRay Report ---
History: Intubated patient Date: 10/24/2016 Study: Chest x-ray AP portable Comparison exam: 10/23/2016 The endotracheal tube and nasogastric tube are well-positioned. The cardiac silhouette is upper normal size. There is no mediastinal mass. There is some patchy and hazy edema/infiltrate in the right mid to lower lung and left lung base. This includes some atelectatic change in the right middle lobe as before. There is mild pleural effusion in the right minor fissure. The osseous structures are unchanged. Impression: Overall no gross change from the previous study when accounting for differences in inspiration. Right greater than left bibasilar edema/infiltrate, accentuated by shallow inspiration PROCEDURE INTERPRETED AT [facility] DEPARTMENT OF RADIOLOGY Final Report Signed by: Dr. Ale Swenson
[2016-10-24] MEDS: SODIUM CHLORIDE 0.9% 1,000 ML IV SCH ×3 (09:38→22:45)
[2016-10-24] MEDS: PROPOFOL 1,000 MG/100 ML BOTTLE IV SCH ×2 (12:43→23:02)
[2016-10-24] MEDS: ENOXAPARIN 40 MG/0.4 ML SYRINGE SUBCUT SCH (17:19)
[2016-10-25] MEDS: SODIUM CHLORIDE 0.9% 1,000 ML IV SCH (02:54)
[2016-10-25 04:43] LABS: Basophils % 0.2 % (0.0-0.8); Eosinophils # 0.1 10*3/uL (0.0-0.87); Eosinophils % 1.1 % (0.00-10.9); Hematocrit 28.5 VOL% (42.0-52.0); Hemoglobin 10.3 GM/DL (14.0-18.0); Immature Granulocytes % 0.3 %; Immature Granulocytes Absolute 0.03 #; Lymphocytes # 1.1 10*3/uL (1.4-4.0); Lymphocytes % 11.6 % (21.2-54.2); Mean Corpuscular HGB Conc 36.1 GM/DL (32-36); Mean Corpuscular Hemoglobin 41 PG (27-34); Mean Corpuscular Volume 113.1 FL (87-102); Mean Platelet Volume 11.5 FL (9.6-12.0); Monocytes # 0.7 10*3/uL (0.11-0.8); Monocytes % 6.9 % (1.7-12.7); Neutrophils # 7.5 10*3/uL (1.4-7.4); Neutrophils % 79.9 % (38.7-73.9); Platelet Count 113 T/CUMM (130-400); Red Blood Count 2.52 MC/CUMM (3.8-5.5); Red Cell Distribution Width 15.4 % (9.3-17.3); White Blood Count 9.4 T/CUMM (4-12)
[2016-10-25 05:21] LABS: Osmolality,Calculated 296.1 MOS/KG (273-304); Potassium 3.6 MMOL/L (3.5-5.1)
[2016-10-25] MEDS: INSULIN REGULAR 100 UNIT/ML SUBCUT SCH ×3 (06:10→19:05)
[2016-10-25] MEDS: PIPERACILLIN/TAZOBACTAM 3,375 MG in SODIUM CHLORIDE 0.9% 100 ML IV SCH (06:20)
[2016-10-25 06:56] LABS: Hypochromasia 1+; Lymphocytes 7 % (20-55); Platelet Estimate Decreased; Polychromasia Slight; Segmented Neutrophils 85 % (50-85); Total Cells Counted 100
--- NOTE | 2016-10-25 07:22 | Pulmonology Progress Note ---
Pulmonary - PN: Subj Interval history: Patient is a 56-year-old black man that was found unresponsive at home. He is felt to be having seizures. He does have a history of alcohol abuse. He had to be intubated. He was felt that I have aspirated his right lower lobe pneumonia. His bronchoscopy did not show a lot of particulate matter or any obstruction. He is fairly stable on the ventilator and his oxygenation is better. He has not had any definite seizures. He has been stable on the ventilator but did not do CPAP very well at all yesterday. His weight is up and he may be a little overloaded. Otherwise he is fairly stable Exam (Progress Note) - Constitutional Vitals: Period Temp Pulse Resp BP Sys/Wilkerson Pulse Ox Last 24 Hr 97.6 F-100.2 F 86-99 12-54 95-120/59-82 95-100 Exam: General appearance: normal weight, no acute distress, other (Patient looks stable on the ventilator. He is responding a little better.) - Head Head exam: Present: normal inspection - Eye Eye exam: Present: other (He has bilateral arcus). Absent: scleral icterus Pupils: Present: dilated - ENT ENT exam: Present: normal exam, other (ET tube is in good position) - Neck Neck exam: Absent: lymphadenopathy, thyromegaly - Respiratory Respiratory exam: Present: His lungs have good breath sounds and is moving air fairly well with some crackles bilaterally. - Cardiovascular Cardiovascular exam: Present: regular rate and rhythm. Absent: gallop, systolic murmur - GI/Abdominal GI/Abdominal exam: Present: normal bowel sounds, soft. Absent: ascites, organomegaly, tenderness - Extremities Exam Extremities exam: Absent: calf tenderness, edema - Neurological Exam Neurological exam: Present: other (He still has sedation on board. He does move around a little.) - Skin Skin exam: Present: warm, dry Results - Labs CBC & BMP: 10/25/16 04:07 10/25/16 04:07 - Diagnostic Findings Procedure: Chest x-ray: image reviewed by me, report reviewed by me (Chest x- ray shows some bibasilar changes. The right lower lobe consolidation is better. ) Assessment and Plan (1) Seizure Status: Acute Assessment and plan: The patient was found obtunded and apparently had a seizure. Neurology will evaluate. He is getting EEG and is on Dilantin. He has not had any further seizures. Current Visit: Yes (2) Alcoholism Status: Acute Assessment and plan: Patient apparently has a history of alcohol abuse. Current Visit: Yes (3) Respiratory failure Status: Acute Assessment and plan: Patient is on the ventilator with pneumonia now. He did not do CPAP very well and he may be a little overloaded. We will try to diurese a little Current Visit: Yes (4) Aspiration pneumonia Status: Acute Assessment and plan: Patient has a consolidated right lower lobe and will continue with antibiotics. He has Klebsiella oxytoca on culture. Current Visit: Yes
[2016-10-25] MEDS ORDERED: FUROSEMIDE 40 MG/4 ML VIAL IV ONE (07:23)
[2016-10-25] MEDS: PROPOFOL 1,000 MG/100 ML BOTTLE IV SCH ×5 (08:09→23:53)
[2016-10-25] MEDS: PHENYTOIN 100 MG/2 ML VIAL IV SCH ×2 (08:10→16:04)
[2016-10-25] MEDS: FOLIC ACID 1 MG TABLET PO SCH (08:43)
[2016-10-25] MEDS: THIAMINE 100 MG TABLET PO SCH (08:44)
[2016-10-25] MEDS: PANTOPRAZOLE 40 MG VIAL IV SCH (08:44)
[2016-10-25] MEDS: POTASSIUM CHLORIDE 20 MEQ/15 ML UDCUP NG SCH ×2 (08:44→20:44)
[2016-10-25] MEDS: MULTIVITAMIN (CENTRUM) TABLET PO SCH (08:44)
--- NOTE | 2016-10-25 09:01 | Hospitalist Progress Note ---
Assessment and Plan (1) Seizure Status: Acute Current Visit: Yes (2) Aspiration into airway Status: Acute Current Visit: Yes (3) Alcoholism Status: Acute Current Visit: Yes (4) Aspiration pneumonia Status: Acute Current Visit: Yes (5) Respiratory failure Status: Acute Current Visit: Yes (6) New onset seizure Status: Acute Current Visit: Yes (7) Thrombocytopenia Status: Acute Current Visit: Yes Hospitalist: Subjective Interval history: Still not doing well with CPAP trials today. He appears to be mildly more congested with slightly increased volume overload. No obvious seizure activity has been noted. Assessment and plan 10/25/2016: Acute respiratory failure possibly after seizure Mild volume overload Bronchial cultures positive for Klebsiella Thrombocytopenia Continue Dilantin. EEG is pending. Neurology to follow. He's been getting Zosyn and Lovenox and both can contribute to thrombocytopenia however this does not appear to be head as suspected counts have stabilized. To be on the safe side we'll discontinue Zosyn and Lovenox and switch him to Rocephin clindamycin and Arixtra. He will be given some Lasix by pulmonary today. Follow-up on EEG. Exam - Constitutional Vitals: Period Temp Pulse Resp BP Sys/Wilkerson Pulse Ox Last 24 Hr 97.0 F-100.2 F 85-99 12-54 95-123/59-82 95-100 Exam: General appearance: no acute distress (on mech vent) - Respiratory Respiratory exam: Present: clear to auscultation bilaterally (Decrease air entry right base). Absent: rales, rhonchi - Cardiovascular Cardiovascular exam: Present: regular rate and rhythm. Absent: tachycardia - GI/Abdominal GI/Abdominal exam: Present: normal bowel sounds, tenderness, soft - Extremities Exam Extremities exam: Present: edema. Absent: normal inspection Results - Labs CBC & BMP: 10/25/16 04:07 10/25/16 04:07 Lab Results: I have reviewed the past 24 hour labs
[2016-10-25] MEDS: CLINDAMYCIN INJ 600 MG in PREMIX 1 EACH IV SCH ×2 (09:07→16:04)
[2016-10-25] MEDS: FONDAPARINUX 2.5 MG/0.5 ML SYRINGE SUBCUT SCH (09:07)
[2016-10-25] MEDS: cefTRIAXone 1,000 MG in SODIUM CHLORIDE 0.9% 100 ML IV SCH (10:13)
--- NOTE | 2016-10-25 12:15 | XRay Report ---
History: Intubated patient Date: 10/25/2016 Study: Chest x-ray AP portable Comparison exam: 10/24/2016 The endotracheal and nasogastric tubes remain in place. The cardiomediastinal silhouette is unchanged. There is continued patchy and hazy infiltrate/edema in the right lower lung. While there is some mild residual atelectasis/infiltrate in the left lung base, this has improved. There is no new or worsening process. There is probable mild right pleural effusion as before. The osseous structures are unchanged. Impression: No significant change in the right basilar infiltrate/edema. Slightly improved aeration in the left lung base PROCEDURE INTERPRETED AT [facility] DEPARTMENT OF RADIOLOGY Final Report Signed by: Dr. Ale Swenson
[2016-10-26] MEDS: INSULIN REGULAR 100 UNIT/ML SUBCUT SCH ×4 (00:08→17:51)
[2016-10-26] MEDS: PHENYTOIN 100 MG/2 ML VIAL IV SCH ×3 (00:22→16:35)
[2016-10-26] MEDS: CLINDAMYCIN INJ 600 MG in PREMIX 1 EACH IV SCH ×3 (00:28→16:35)
[2016-10-26] MEDS: PROPOFOL 1,000 MG/100 ML BOTTLE IV SCH ×7 (02:57→23:18)
[2016-10-26 05:36] LABS: Basophils % 0.3 % (0.0-0.8); Eosinophils # 0.2 10*3/uL (0.0-0.87); Eosinophils % 3.3 % (0.00-10.9); Hematocrit 29.2 VOL% (42.0-52.0); Immature Granulocytes % 1.4 %; Lymphocytes # 0.9 10*3/uL (1.4-4.0); Lymphocytes % 11.8 % (21.2-54.2); Mean Corpuscular HGB Conc 37.7 GM/DL (32-36); Mean Corpuscular Hemoglobin 43 PG (27-34); Mean Corpuscular Volume 112.7 FL (87-102); Mean Platelet Volume 12.6 FL (9.6-12.0); Monocytes # 1.6 10*3/uL (0.11-0.8); Monocytes % 22.5 % (1.7-12.7); NRBC # 0.23 10*3/uL; Neutrophils # 4.4 10*3/uL (1.4-7.4); Neutrophils % 60.7 % (38.7-73.9); Platelet Count 119 T/CUMM (130-400); Red Blood Count 2.59 MC/CUMM (3.8-5.5); Red Cell Distribution Width 15.3 % (9.3-17.3); White Blood Count 7.3 T/CUMM (4-12)
[2016-10-26 06:27] LABS: Eosinophils 2 % (0-10); Hypochromasia Slight; Lymphocytes 17 % (20-55); Platelet Estimate Normal; Segmented Neutrophils 58 % (50-85); Total Cells Counted 100
--- NOTE | 2016-10-26 07:52 | XRay Report ---
Portable chest Date: 10/26/2016 Clinical history: Ventilator Comparison: 10/25/2016 Technique: Portable AP sitting chest Findings: The heart is slightly smaller in size. The endotracheal tube and nasogastric tube are in satisfactory position. Progressive parenchymal findings with larger right pleural effusion. Stable mediastinum and osseous structures. Impression: Progressive pulmonary edema/bilateral pneumonia with larger [id number] right pleural effusion. Stable support devices. PROCEDURE INTERPRETED AT [facility] DEPARTMENT OF RADIOLOGY Final Report Signed by: Dr. Juany Cooper
[2016-10-26] MEDS: LORazepam 2 MG/1 ML VIAL IV PRN (08:06)
--- NOTE | 2016-10-26 08:37 | Pulmonology Progress Note ---
Pulmonary - PN: Subj Interval history: Patient is a 56-year-old black man that was found unresponsive at home. He is felt to be having seizures. He does have a history of alcohol abuse. He had to be intubated. He was felt that I have aspirated his right lower lobe pneumonia. His bronchoscopy did not show a lot of particulate matter or any obstruction. He is fairly stable on the ventilator and his oxygenation is better. He has not had any definite seizures. He still is not doing very well on CPAP. He did diurese fairly well yesterday. He does seem to be more alert now. His chest x-ray has been slow to clear Exam (Progress Note) - Constitutional Vitals: Period Temp Pulse Resp BP Sys/Wilkerson Pulse Ox Last 24 Hr 97.0 F-99.1 F 74-108 12-34 89-142/58-102 96-100 Exam: General appearance: normal weight, no acute distress, other (Patient looks stable on the ventilator. He is responding a little better. He does get a little agitated at times.) - Head Head exam: Present: normal inspection - Eye Eye exam: Present: other (He has bilateral arcus). Absent: scleral icterus Pupils: Present: dilated - ENT ENT exam: Present: normal exam, other (ET tube is in good position) - Neck Neck exam: Absent: lymphadenopathy, thyromegaly - Respiratory Respiratory exam: Present: His lungs have good breath sounds he is moving air well with just some rhonchi and crackles in the bases. - Cardiovascular Cardiovascular exam: Present: regular rate and rhythm. Absent: gallop, systolic murmur - GI/Abdominal GI/Abdominal exam: Present: normal bowel sounds, soft. Absent: ascites, organomegaly, tenderness - Extremities Exam Extremities exam: Absent: calf tenderness, edema - Neurological Exam Neurological exam: Present: other (He still has sedation on board. He does move around a little.) - Skin Skin exam: Present: warm, dry Results - Labs CBC & BMP: 10/26/16 05:11 10/25/16 04:07 - Diagnostic Findings Procedure: Chest x-ray: image reviewed by me, report reviewed by me (Chest x- ray still shows bibasilar infiltrates.) Assessment and Plan (1) Seizure Status: Acute Assessment and plan: The patient was found obtunded and apparently had a seizure. Neurology will evaluate. He is getting EEG and is on Dilantin. He has not had any further seizures. Current Visit: Yes (2) Alcoholism Status: Acute Assessment and plan: Patient apparently has a history of alcohol abuse. Current Visit: Yes (3) Respiratory failure Status: Acute Assessment and plan: Patient is on the ventilator with pneumonia now. He still is not doing CPAP very well. We will continue with present therapy. Current Visit: Yes (4) Aspiration pneumonia Status: Acute Assessment and plan: Patient has a consolidated right lower lobe and will continue with antibiotics. He has Klebsiella oxytoca on culture. Will continue with antibiotics and respiratory therapy. Current Visit: Yes
[2016-10-26] MEDS ORDERED: FUROSEMIDE 40 MG/4 ML VIAL IV ONE (08:39)
[2016-10-26 08:46] LABS: Calcium 6.2 MG/DL (8.5-10.1); Magnesium 1.6 MG/DL (1.8-2.4); Osmolality,Calculated 257.8 MOS/KG (273-304); Phosphorous 1.5 MG/DL (2.5-4.9); Potassium 3.5 MMOL/L (3.5-5.1)
[2016-10-26] MEDS: MULTIVITAMIN (CENTRUM) TABLET PO SCH (09:17)
[2016-10-26] MEDS: POTASSIUM CHLORIDE 20 MEQ/15 ML UDCUP NG SCH ×2 (09:17→20:04)
[2016-10-26] MEDS: cefTRIAXone 1,000 MG in SODIUM CHLORIDE 0.9% 100 ML IV SCH (09:17)
[2016-10-26] MEDS: THIAMINE 100 MG TABLET PO SCH (09:17)
[2016-10-26] MEDS: FOLIC ACID 1 MG TABLET PO SCH (09:17)
[2016-10-26] MEDS: FONDAPARINUX 2.5 MG/0.5 ML SYRINGE SUBCUT SCH (09:18)
[2016-10-26] MEDS: PANTOPRAZOLE 40 MG VIAL IV SCH (09:18)
--- NOTE | 2016-10-26 10:41 | Hospitalist Progress Note ---
Assessment and Plan (1) Aspiration pneumonia Status: Acute Assessment and plan: The patient will continue treatment for pneumonia and respiratory failure. The patient has had one bronchoscopy which did not reveal much particulate matter. The patient is making very slow progress towards weaning. Current Visit: Yes (2) Respiratory failure Status: Acute Current Visit: Yes Hospitalist: Subjective Interval history: Mr. Gonzalez was intubated at the time of admission to the hospital due to respiratory failure that may have been associated with some seizure type activity. The patient has not had any seizure symptoms during hospitalization. The patient remains on the ventilator with high oxygen demand and has not been tolerating CPAP trials. The patient is tolerating tube feedings. Exam - Constitutional Vitals: Period Temp Pulse Resp BP Sys/Wilkerson Pulse Ox Last 24 Hr 97.0 F-99.1 F 74-108 12-34 89-142/51-102 96-100 Exam: Constitutional System: Mild distress. No tremulousness. The patient is orally intubated and mechanically ventilated Head: Normocephalic, atraumatic. Ears, Nose and Throat System: No evidence of Otitis or Mastoiditis. No epistaxis or discharge Eyes System: Pupils equal, round, and reactive. Extraocular muscles intact. Neck: Supple, without adenopathy, No jugular venous distention. No thyromegaly , neck mass, or prior surgery apparent. Respiratory System: Chest with few rhonchi in bases to auscultation. Cardiovascular System: Heart with regular rate and rhythm. No murmur. GI System: Abdomen soft, nontender. Normo active bowel sounds present. Musculoskeletal System: limbs with no pedal edema. Full distal pulses. Results - Labs CBC & BMP: 10/26/16 05:11 10/26/16 06:45 Lab Results: I have reviewed the past 24 hour labs
--- NOTE | 2016-10-26 11:15 | Physician Query Form ---
CLICK EDIT DOCUMENT TO SELECT QUERY ANSWER --> OK --> SIGN Mar Peña RN, CCDS Certified Clinical Jigger Operator W) [phone] (f) [phone] [email or web address] PROVIDERS: Make your selection(s) from the choices in EACH section by typing an "x" and enter comments in the comment section. Please use your independent medical judgment in providing your response. This request does not imply that any particular answer is desired or expected. CLINICAL INDICATORS: (Providers should not edit this section) The medical record indicates that the patient was admitted Sz, aspiration pneumonia, bronchial washings are showing Klebsiella oxytoca and the patient is on Clindamycin/ Ceftriaxone. Community Acquired and Healthcare Acquired are both unspecified terms and require further specificity. Based on the above, could you please clarify further specificity regarding the type of pneumonia you are treating (even if specific organism may not be known) ? (X ) Aspiration pneumonia ( ) Gram negative pneumonia ( ) Gram positive pneumonia ( ) Bacterial pneumonia due to, please specify organism (if known): Klebsiella oxytoca ( ) Pneumonia with Influenza ( ) Viral pneumonia ( ) Post procedural ( ) HIV associated pneumonia ( ) Radiation Pneumonitis ( ) Pneumonia due to, please specify: ( ) Clinically unable to determine ( ) Other, please specify: COMMENTS: Use of terms such as suspected, likely, or probable (associated with a specific diagnosis that is being evaluated, monitored, or treated as if it exists) are acceptable and can be restated in the discharge summary if not ruled out. MTDD
--- NOTE | 2016-10-26 16:16 | Neurology Progress Note ---
Neurology - PN : Subjective Interval history: Patient seems to be doing okay. No more seizures reported. Still on vent. Dilantin level is 15.3. Exam (Progress Note) - Constitutional Vitals: Period Temp Pulse Resp BP Sys/Wilkerson Pulse Ox Last 24 Hr 97.0 F-98.8 F 74-97 12-34 87-142/51-93 13-100 Exam: GENERAL: Patient is in no acute distress. NECK: Neck is supple. There is no JVD. No carotid bruits present. No thyroid masses. CVS: First and second heart sounds are normal. There is no S3 present. Regular rate and rhythm. RESPIRATORY: Lungs are clear to auscultation without any rales or rhonchi. ABDOMEN: Soft and non-tender. Bowel sounds are present. There is no hepatosplenomegaly. EXT: There is no palpable edema. Peripheral pulses are present. Skin: No rashes Central Nervous system: General: Sedated on vent Speech: None Comprehension: None Facial expressions: Normal Cranial Nerves: Pupils are equally reactive to light. Doll's head eye movements are positive. No facial asymmetry is seen. Gag is intact. Motor: Bulk and Tone is normal. Strength cannot be assessed Sensory: Cannot be assessed Reflexes: 1+ and symmetrical Cerebellar function: Cannot be assessed Toes: Equivocal Gait: Cannot be assessed Results - Labs CBC & BMP: 10/26/16 05:11 10/26/16 06:45 Assessment and Plan (1) New onset seizure Status: Acute Assessment and plan: This could very well be alcohol induced Dilantin level is 15.3. Cont supportive management No active issues from neuro standpoint Current Visit: Yes
[2016-10-27] MEDS: INSULIN REGULAR 100 UNIT/ML SUBCUT SCH ×5 (00:06→23:31)
[2016-10-27] MEDS: CLINDAMYCIN INJ 600 MG in PREMIX 1 EACH IV SCH ×3 (00:29→17:41)
[2016-10-27] MEDS: PHENYTOIN 100 MG/2 ML VIAL IV SCH ×3 (00:29→17:41)
[2016-10-27] MEDS: PROPOFOL 1,000 MG/100 ML BOTTLE IV SCH ×7 (02:55→22:51)
[2016-10-27 03:37] LABS: ABG HCO3 27.1 MMOL/L (20-26); ABG Oxygen Saturation 97.8 % (95-100); ABG PCO2 35.9 MM HG (35-48); ABG PH 7.475 (7.35-7.45); ABG TCO2 23.5 MMOL/L (23-27); Pt O2 Delivery Device Ventilator
[2016-10-27 05:13] LABS: Basophils % 0.3 % (0.0-0.8); Eosinophils # 0.1 10*3/uL (0.0-0.87); Eosinophils % 2.4 % (0.00-10.9); Hematocrit 31.6 VOL% (42.0-52.0); Hemoglobin 10.9 GM/DL (14.0-18.0); Immature Granulocytes % 2.6 %; Immature Granulocytes Absolute 0.15 #; Lymphocytes # 1.1 10*3/uL (1.4-4.0); Lymphocytes % 18.1 % (21.2-54.2); Mean Corpuscular HGB Conc 34.5 GM/DL (32-36); Mean Corpuscular Hemoglobin 41 PG (27-34); Mean Corpuscular Volume 119.2 FL (87-102); Mean Platelet Volume 11.6 FL (9.6-12.0); Monocytes # 1.3 10*3/uL (0.11-0.8); Monocytes % 21.3 % (1.7-12.7); Neutrophils # 3.2 10*3/uL (1.4-7.4); Neutrophils % 55.3 % (38.7-73.9); Platelet Count 150 T/CUMM (130-400); Red Blood Count 2.65 MC/CUMM (3.8-5.5); Red Cell Distribution Width 15.9 % (9.3-17.3); White Blood Count 5.9 T/CUMM (4-12)
[2016-10-27 05:26] LABS: Calcium 8.1 MG/DL (8.5-10.1); Magnesium 1.9 MG/DL (1.8-2.4); Osmolality,Calculated 288.6 MOS/KG (273-304); Potassium 4.2 MMOL/L (3.5-5.1)
[2016-10-27 05:50] LABS: Band Neutrophils 4 % (0-10); Eosinophils 1 % (0-10); Hypochromasia 1+; Lymphocytes 23 % (20-55); Platelet Estimate Normal; Segmented Neutrophils 49 % (50-85); Total Cells Counted 100
--- NOTE | 2016-10-27 06:50 | XRay Report ---
Portable chest Date: 10/27/2016 Clinical history: Ventilator management Comparison: 10/26/2016 Technique: Portable AP sitting chest Findings: The heart is minimally enlarged with stable support devices. Reduced parenchymal findings in the lungs with smaller pleural effusions. Stable mediastinum and osseous structures. Impression: Improving pulmonary edema/bilateral pneumonia with smaller pleural effusions. Stable supportive devices. PROCEDURE INTERPRETED AT [facility] DEPARTMENT OF RADIOLOGY Final Report Signed by: Dr. Juany Cooper
--- NOTE | 2016-10-27 08:06 | Hospitalist Progress Note ---
Assessment and Plan (1) Aspiration pneumonia Status: Acute Assessment and plan: The patient will continue treatment for pneumonia and respiratory failure. The patient has had one bronchoscopy which did not reveal much particulate matter. The patient is making very slow progress towards weaning. We are manipulating the free water in order to maintain his sodium in the normal range. We will recheck electrolytes tomorrow morning Current Visit: Yes (2) Respiratory failure Status: Acute Current Visit: Yes Hospitalist: Subjective Interval history: The patient is awake and responds to the observer. He remains orally intubated and mechanically ventilated. We are manipulating the tube feeding in order to maintain nutritional balance and sodium equilibrium. The patient had high residual in the stomach this morning and tube feedings are presently on hold. Exam - Constitutional Vitals: Period Temp Pulse Resp BP Sys/Wilkerson Pulse Ox Last 24 Hr 98.0 F-99.3 F 72-90 12-15 87-109/51-67 13-100 Exam: Constitutional System: Mild distress. No tremulousness. The patient is orally intubated and mechanically ventilated Head: Normocephalic, atraumatic. Ears, Nose and Throat System: No evidence of Otitis or Mastoiditis. No epistaxis or discharge Eyes System: Pupils equal, round, and reactive. Extraocular muscles intact. Neck: Supple, without adenopathy, No jugular venous distention. No thyromegaly , neck mass, or prior surgery apparent. Respiratory System: Chest with few rhonchi in bases to auscultation. Cardiovascular System: Heart with regular rate and rhythm. No murmur. GI System: Abdomen soft, nontender. Normo active bowel sounds present. Musculoskeletal System: limbs with no pedal edema. Full distal pulses. Results - Labs CBC & BMP: 10/27/16 04:28 10/27/16 04:28 Lab Results: I have reviewed the past 24 hour labs
--- NOTE | 2016-10-27 08:22 | Pulmonology Progress Note ---
Pulmonary - PN: Subj Interval history: Patient is a 56-year-old black man that was found unresponsive at home. He is felt to be having seizures. He does have a history of alcohol abuse. He had to be intubated. He was felt that I have aspirated his right lower lobe pneumonia. His bronchoscopy did not show a lot of particulate matter or any obstruction. He is fairly stable on the ventilator and his oxygenation is better. He has not had any definite seizures. Chest x-ray is improving. His oxygenation is okay but has not done very well so far on CPAP. Otherwise he is definitely getting a little better. Exam (Progress Note) - Constitutional Vitals: Period Temp Pulse Resp BP Sys/Wilkerson Pulse Ox Last 24 Hr 98.0 F-99.3 F 72-90 12-15 87-109/51-67 13-100 Exam: General appearance: normal weight, no acute distress, other (Patient looks stable on the ventilator. He is responding a little better. He still cannot do CPAP very well.) - Head Head exam: Present: normal inspection - Eye Eye exam: Present: other (He has bilateral arcus). Absent: scleral icterus Pupils: Present: dilated - ENT ENT exam: Present: normal exam, other (ET tube is in good position) - Neck Neck exam: Absent: lymphadenopathy, thyromegaly - Respiratory Respiratory exam: Present: His lungs have good breath sounds and he sounds better with less rales or rhonchi. - Cardiovascular Cardiovascular exam: Present: regular rate and rhythm. Absent: gallop, systolic murmur - GI/Abdominal GI/Abdominal exam: Present: normal bowel sounds, soft. Absent: ascites, organomegaly, tenderness - Extremities Exam Extremities exam: Absent: calf tenderness, edema - Neurological Exam Neurological exam: Present: other (He does respond but gets anxious at times.) - Skin Skin exam: Present: warm, dry Results - Labs CBC & BMP: 10/27/16 04:28 10/27/16 04:28 - Diagnostic Findings Procedure: Chest x-ray: image reviewed by me, report reviewed by me (Chest x- ray shows improvement in the right lower lobe infiltrate) Assessment and Plan (1) Seizure Status: Acute Assessment and plan: The patient was found obtunded and apparently had a seizure. Neurology will evaluate. He is getting EEG and is on Dilantin. He has not had any further seizures. Current Visit: Yes (2) Alcoholism Status: Acute Assessment and plan: Patient apparently has a history of alcohol abuse. Current Visit: Yes (3) Respiratory failure Status: Acute Assessment and plan: Patient is on the ventilator with pneumonia now. His oxygenation is better and his chest x-ray is better. We will change him to IMV and start weaning. Current Visit: Yes (4) Aspiration pneumonia Status: Acute Assessment and plan: Patient has a consolidated right lower lobe and will continue with antibiotics. He has Klebsiella oxytoca on culture. Will continue with antibiotics and respiratory therapy. We will continue to try to wean. Current Visit: Yes
[2016-10-27] MEDS: MULTIVITAMIN (CENTRUM) TABLET PO SCH (08:25)
[2016-10-27] MEDS: POTASSIUM CHLORIDE 20 MEQ/15 ML UDCUP NG SCH ×2 (08:25→20:34)
[2016-10-27] MEDS: FOLIC ACID 1 MG TABLET PO SCH (08:25)
[2016-10-27] MEDS: cefTRIAXone 1,000 MG in SODIUM CHLORIDE 0.9% 100 ML IV SCH (08:26)
[2016-10-27] MEDS: THIAMINE 100 MG TABLET PO SCH (08:26)
[2016-10-27] MEDS: PANTOPRAZOLE 40 MG VIAL IV SCH (08:27)
[2016-10-27] MEDS: FONDAPARINUX 2.5 MG/0.5 ML SYRINGE SUBCUT SCH (08:27)
[2016-10-28] MEDS: CLINDAMYCIN INJ 600 MG in PREMIX 1 EACH IV SCH ×3 (01:32→17:46)
[2016-10-28] MEDS: PHENYTOIN 100 MG/2 ML VIAL IV SCH ×3 (01:37→17:00)
[2016-10-28] MEDS: PROPOFOL 1,000 MG/100 ML BOTTLE IV SCH ×9 (02:20→23:26)
[2016-10-28 04:10] LABS: ABG Base Excess 2.3 MMOL/L (-2.5-2.5); ABG HCO3 26.4 MMOL/L (20-26); ABG Oxygen Saturation 97.7 % (95-100); ABG PCO2 42.6 MM HG (35-48); ABG PH 7.412 (7.35-7.45); ABG TCO2 24.6 MMOL/L (23-27); Pt O2 Delivery Device Ventilator
[2016-10-28 05:47] LABS: Calcium 8.4 MG/DL (8.5-10.1); Magnesium 2.2 MG/DL (1.8-2.4); Osmolality,Calculated 289.6 MOS/KG (273-304); Potassium 4.4 MMOL/L (3.5-5.1)
--- NOTE | 2016-10-28 06:20 | Pulmonology Progress Note ---
Pulmonary - PN: Subj Interval history: Patient is a 56-year-old black man that was found unresponsive at home. He is felt to be having seizures. He does have a history of alcohol abuse. He had to be intubated. He was felt that I have aspirated his right lower lobe pneumonia. His bronchoscopy did not show a lot of particulate matter or any obstruction. He is fairly stable on the ventilator and his oxygenation is better. He has not had any definite seizures. He has done some short CPAP trials although I think he fatigues fairly easily. He does have a very small ET tube. His chest x-ray shows bibasilar changes still. His oxygenation has been fair. Exam (Progress Note) - Constitutional Vitals: Period Temp Pulse Resp BP Sys/Wilkerson Pulse Ox Last 24 Hr 97.2 F-98.6 F 65-94 2-20 93-127/53-94 95-100 Exam: General appearance: normal weight, no acute distress, other (Patient looks stable on the ventilator. He is responding a little better. He still cannot do CPAP very well.) - Head Head exam: Present: normal inspection - Eye Eye exam: Present: other (He has bilateral arcus). Absent: scleral icterus Pupils: Present: dilated - ENT ENT exam: Present: normal exam, other (ET tube is in good position) - Neck Neck exam: Absent: lymphadenopathy, thyromegaly - Respiratory Respiratory exam: Present: His lungs have good breath sounds and he sounds better with less rales or rhonchi. - Cardiovascular Cardiovascular exam: Present: regular rate and rhythm. Absent: gallop, systolic murmur - GI/Abdominal GI/Abdominal exam: Present: normal bowel sounds, soft. Absent: ascites, organomegaly, tenderness - Extremities Exam Extremities exam: Absent: calf tenderness, edema - Neurological Exam Neurological exam: Present: other (He does respond but gets anxious at times. He is still requiring a lot of sedation.) - Skin Skin exam: Present: warm, dry Results - Labs CBC & BMP: 10/27/16 04:28 10/28/16 04:39 Labs: PO2 is 109 with a PCO2 42 and a pH of 7.41 - Diagnostic Findings Procedure: Chest x-ray: image reviewed by me, report reviewed by me (Chest x- ray still shows bibasilar changes) Assessment and Plan (1) Seizure Status: Acute Assessment and plan: The patient was found obtunded and apparently had a seizure. Neurology will evaluate. He is getting EEG and is on Dilantin. He has not had any further seizures. Current Visit: Yes (2) Alcoholism Status: Acute Assessment and plan: Patient apparently has a history of alcohol abuse. Current Visit: Yes (3) Respiratory failure Status: Acute Assessment and plan: Patient is on the ventilator with pneumonia now. His oxygenation is better and his chest x-ray is better. We will change him to IMV and start weaning. He may do better with a larger ET tube. We will see if anesthesia can change the tube. We will continue weaning trials. Current Visit: Yes (4) Aspiration pneumonia Status: Acute Assessment and plan: Patient has a consolidated right lower lobe and will continue with antibiotics. He has Klebsiella oxytoca on culture. Will continue with antibiotics and respiratory therapy. We will continue to try to wean. Current Visit: Yes
[2016-10-28] MEDS: INSULIN REGULAR 100 UNIT/ML SUBCUT SCH ×3 (06:27→18:22)
--- NOTE | 2016-10-28 07:37 | XRay Report ---
Portable chest Date: 10/28/2016 Clinical history: Ventilator management Comparison: 10/27/2016 Technique: Portable AP sitting chest Findings: Stable cardiomegaly and supporting devices. Diffuse parenchymal findings persist with small pleural effusions. Stable mediastinum and osseous structures. Impression: No significant change in the appearance of the chest when compared to the previous exam. PROCEDURE INTERPRETED AT [facility] DEPARTMENT OF RADIOLOGY Final Report Signed by: Dr. Juany Cooper
[2016-10-28] MEDS: THIAMINE 100 MG TABLET PO SCH (08:39)
[2016-10-28] MEDS: MULTIVITAMIN (CENTRUM) TABLET PO SCH (08:39)
[2016-10-28] MEDS: cefTRIAXone 1,000 MG in SODIUM CHLORIDE 0.9% 100 ML IV SCH (08:40)
[2016-10-28] MEDS: FONDAPARINUX 2.5 MG/0.5 ML SYRINGE SUBCUT SCH (08:40)
[2016-10-28] MEDS: PANTOPRAZOLE 40 MG VIAL IV SCH (08:40)
[2016-10-28] MEDS: FOLIC ACID 1 MG TABLET PO SCH (08:40)
[2016-10-28] MEDS: POTASSIUM CHLORIDE 20 MEQ/15 ML UDCUP NG SCH ×2 (08:41→21:04)
--- NOTE | 2016-10-28 10:11 | XRay Report ---
Portable chest Date: 10/28/2016 Clinical history: Ventilator management Comparison: 10/28/2016 Technique: Portable AP sitting chest Findings: Stable cardiomegaly and support devices. Decreased and parenchymal findings the right mid-lower lung zone with similar progressive findings on the left. Stable mediastinum with degenerative changes. Impression: Reduced atelectasis/infiltration in the right mid-lower lung zone with smaller right pleural effusion. Similar progressive findings in the left mid to lower lung zone. PROCEDURE INTERPRETED AT [facility] DEPARTMENT OF RADIOLOGY Final Report Signed by: Dr. Juany Cooper
[2016-10-28] MEDS: ALBUTEROL/IPRATROPIUM 3 ML NEB RESP TX SCH ×2 (12:35→19:11)
--- NOTE | 2016-10-28 12:45 | Anesthesia ---
Anesthesia Procedures - Intubation Time out performed intubation: Yes Sedative: other (On Propofol Infusion) Laryngoscope: Arroyo (Mil 2) Assist Device Used: Bougie ET Tube Size: 7.5 ET Tube Uncuffed: No Tube Secured Depth (cm): 23 Tube Secured Location: teeth Tube Placement Confirmation: visualized tube passing through cords, equal breath sounds bilaterally, no breath sounds over epigastrium, confirmation detector color change Patient tolerated procedure intubation: well, no complications Intubation Complications: none (Tube change per Dr Llanes order)
--- NOTE | 2016-10-28 14:56 | Electroencephalogram ---
HISTORY: A 56-year-old male with a history of change in mental status. INTRODUCTION: A digital EEG was performed using the standard 10/20 system of electrode placement wi th one channel of EKG monitoring. Photic stimulation is performed. DESCRIPTION OF RECORD: The background is somewhat disorganized, consists of 7 to 7.5 hertz of low a mplitude bilaterally symmetrical rhythm. Photic stimulation elicits driving response at slower flas h frequencies. There are no focal, sharp wave, spike or wave activity seen. Heart rate 80 beats per minute. IMPRESSION: ABNORMAL EEG DUE TO GENERALIZED SLOWING. CLINICAL CORRELATION: This record is supportive of mild encephalopathy, which could be secondary to postictal state, posthypoxic state, metabolic disorder, diffuse SLUDGE FILTRATION ATTENDANT insult, or increased intracrani al pressure. No epileptiform/seizure activity seen. Clinical correlation is suggested.
--- NOTE | 2016-10-28 14:56 | Hospitalist Progress Note ---
Assessment and Plan (1) Aspiration pneumonia Status: Acute Assessment and plan: The patient will continue treatment for pneumonia and respiratory failure. The patient has had one bronchoscopy which did not reveal much particulate matter. The patient is making very slow progress towards weaning. We are manipulating the free water in order to maintain his sodium in the normal range. We will recheck electrolytes tomorrow morning. The patient remains on enteral nutrition. Current Visit: Yes (2) Respiratory failure Status: Acute Current Visit: Yes Hospitalist: Subjective Interval history: Mr. Gonzalez remains orally intubated and mechanically ventilated. He is making slow progress to wean. He has no seizure activity noted. The patient's ET tube was exchanged for a larger size today and the patient continues on weaning trials. Exam - Constitutional Vitals: Period Temp Pulse Resp BP Sys/Wilkerson Pulse Ox Last 24 Hr 97.2 F-98.6 F 65-94 2-32 94-127/50-82 92-100 Exam: Constitutional System: Mild distress. No tremulousness. The patient is orally intubated and mechanically ventilated Head: Normocephalic, atraumatic. Ears, Nose and Throat System: No evidence of Otitis or Mastoiditis. No epistaxis or discharge Eyes System: Pupils equal, round, and reactive. Extraocular muscles intact. Neck: Supple, without adenopathy, No jugular venous distention. No thyromegaly , neck mass, or prior surgery apparent. Respiratory System: Chest with few rhonchi in bases to auscultation. Cardiovascular System: Heart with regular rate and rhythm. No murmur. GI System: Abdomen soft, nontender. Normo active bowel sounds present. Musculoskeletal System: limbs with no pedal edema. Full distal pulses. Results - Labs CBC & BMP: 10/27/16 04:28 10/28/16 04:39 Lab Results: I have reviewed the past 24 hour labs
--- NOTE | 2016-10-28 18:12 | Neurology Progress Note ---
Neurology - PN : Subjective Interval history: Patient seems to be doing okay. Is still intubated. No new problems reported. No more seizures reported. Exam (Progress Note) - Constitutional Vitals: Period Temp Pulse Resp BP Sys/Wilkerson Pulse Ox Last 24 Hr 97.2 F-98.8 F 65-93 2-34 94-133/50-82 92-100 Exam: GENERAL: Patient is in no acute distress. NECK: Neck is supple. There is no JVD. No carotid bruits present. No thyroid masses. CVS: First and second heart sounds are normal. There is no S3 present. Regular rate and rhythm. RESPIRATORY: Lungs are clear to auscultation without any rales or rhonchi. ABDOMEN: Soft and non-tender. Bowel sounds are present. There is no hepatosplenomegaly. EXT: There is no palpable edema. Peripheral pulses are present. Skin: No rashes Central Nervous system: General: Sedated on vent Speech: None Comprehension: None Facial expressions: Normal Cranial Nerves: Pupils are equally reactive to light. Doll's head eye movements are positive. No facial asymmetry is seen. Gag is intact. Motor: Bulk and Tone is normal. Strength cannot be assessed Sensory: Cannot be assessed Reflexes: 1+ and symmetrical Cerebellar function: Cannot be assessed Toes: Equivocal Gait: Cannot be assessed Results - Labs CBC & BMP: 10/27/16 04:28 10/28/16 04:39 Assessment and Plan (1) New onset seizure Status: Acute Assessment and plan: This could very well be alcohol induced Dilantin level is 15.3. Cont. supportive management. Current Visit: Yes
[2016-10-29] MEDS: ALBUTEROL/IPRATROPIUM 3 ML NEB RESP TX SCH ×3 (00:05→12:20)
[2016-10-29] MEDS: PHENYTOIN 100 MG/2 ML VIAL IV SCH ×3 (00:39→16:09)
[2016-10-29] MEDS: CLINDAMYCIN INJ 600 MG in PREMIX 1 EACH IV SCH ×3 (00:40→17:09)
[2016-10-29] MEDS: INSULIN REGULAR 100 UNIT/ML SUBCUT SCH ×3 (00:40→11:48)
[2016-10-29] MEDS: PROPOFOL 1,000 MG/100 ML BOTTLE IV SCH ×5 (01:24→11:15)
[2016-10-29] MEDS: LORazepam 2 MG/1 ML VIAL IV PRN (02:44)
[2016-10-29 03:40] LABS: ABG Base Excess 3.4 MMOL/L (-2.5-2.5); ABG HCO3 27.4 MMOL/L (20-26); ABG Oxygen Saturation 97.8 % (95-100); ABG PCO2 44.8 MM HG (35-48); ABG PH 7.415 (7.35-7.45); ABG TCO2 24.3 MMOL/L (23-27); Allen Test Positive; Pt O2 Delivery Device Ventilator
[2016-10-29 03:49] LABS: Basophils % 0.3 % (0.0-0.8); Eosinophils # 0.2 10*3/uL (0.0-0.87); Eosinophils % 1.7 % (0.00-10.9); Hematocrit 29.8 VOL% (42.0-52.0); Hemoglobin 10.6 GM/DL (14.0-18.0); Immature Granulocytes % 1.1 %; Immature Granulocytes Absolute 0.13 #; Lymphocytes % 8.2 % (21.2-54.2); Mean Corpuscular HGB Conc 35.6 GM/DL (32-36); Mean Corpuscular Hemoglobin 40 PG (27-34); Mean Corpuscular Volume 113.3 FL (87-102); Mean Platelet Volume 10.2 FL (9.6-12.0); Monocytes # 1.1 10*3/uL (0.11-0.8); Monocytes % 9.5 % (1.7-12.7); Neutrophils # 9.3 10*3/uL (1.4-7.4); Neutrophils % 79.2 % (38.7-73.9); Platelet Count 384 T/CUMM (130-400); Red Blood Count 2.63 MC/CUMM (3.8-5.5); Red Cell Distribution Width 15.3 % (9.3-17.3); White Blood Count 11.7 T/CUMM (4-12)
[2016-10-29 04:33] LABS: Calcium 8.7 MG/DL (8.5-10.1); Osmolality,Calculated 288.7 MOS/KG (273-304); Potassium 4.3 MMOL/L (3.5-5.1)
[2016-10-29 04:37] LABS: Magnesium 2.1 MG/DL (1.8-2.4); Phosphorous 5.3 MG/DL (2.5-4.9); Prealbumin 14.6 MG/DL (20-40)
[2016-10-29 05:01] LABS: Hypochromasia 2+; Ovalocytes 1+; Platelet Estimate Normal; Target Cells 2+
--- NOTE | 2016-10-29 07:48 | Pulmonology Progress Note ---
Pulmonary - PN: Subj Interval history: Patient is a 56-year-old black man that was found unresponsive at home. He is felt to be having seizures. He does have a history of alcohol abuse. He had to be intubated. He was felt to have aspirated and has right lower lobe pneumonia. His bronchoscopy did not show a lot of particulate matter or any obstruction. He is fairly stable on the ventilator and his oxygenation is better. He has not had any definite seizures. His chest x-ray is improving and he is doing some CPAP now. His small ET tube was changed yesterday and suctioning is easier. Overall he looks like he is improving Exam (Progress Note) - Constitutional Vitals: Period Temp Pulse Resp BP Sys/Wilkerson Pulse Ox Last 24 Hr 97.6 F-98.8 F 71-93 8-34 97-137/50-83 92-100 Exam: General appearance: normal weight, no acute distress, other (Patient looks stable on the ventilator. He is responding a little better. He is starting to do CPAP better.) - Head Head exam: Present: normal inspection - Eye Eye exam: Present: other (He has bilateral arcus). Absent: scleral icterus Pupils: Present: dilated - ENT ENT exam: Present: normal exam, other (ET tube is in good position) - Neck Neck exam: Absent: lymphadenopathy, thyromegaly - Respiratory Respiratory exam: Present: His lungs have good breath sounds and he sounds better with less rales or rhonchi. - Cardiovascular Cardiovascular exam: Present: regular rate and rhythm. Absent: gallop, systolic murmur - GI/Abdominal GI/Abdominal exam: Present: normal bowel sounds, soft. Absent: ascites, organomegaly, tenderness - Extremities Exam Extremities exam: Absent: calf tenderness, edema - Neurological Exam Neurological exam: Present: other (He does respond but gets anxious at times. He is still requiring a lot of sedation.) - Skin Skin exam: Present: warm, dry Results - Labs CBC & BMP: 10/29/16 03:13 10/29/16 03:13 Labs: His PO2 is 107 with a PCO2 of 44 and a pH of 7.41 - Diagnostic Findings Procedure: Chest x-ray: image reviewed by me, report reviewed by me (Chest x- ray continues to improve) Assessment and Plan (1) Seizure Status: Acute Assessment and plan: The patient was found obtunded and apparently had a seizure. Neurology will evaluate. He is getting EEG and is on Dilantin. He has not had any further seizures. He is responding a little better Current Visit: Yes (2) Alcoholism Status: Acute Assessment and plan: Patient apparently has a history of alcohol abuse. Current Visit: Yes (3) Respiratory failure Status: Acute Assessment and plan: Patient is on the ventilator with pneumonia now. His oxygenation is better and his chest x-ray is better. We will change him to IMV and start weaning. He did get a larger ET tube yesterday and is doing a little better. Will continue with weaning trials. Current Visit: Yes (4) Aspiration pneumonia Status: Acute Assessment and plan: Patient has a consolidated right lower lobe and will continue with antibiotics. He has Klebsiella oxytoca on culture. His chest x-ray continues to improve. Current Visit: Yes
[2016-10-29] MEDS ORDERED: LORazepam 2 MG/1 ML VIAL IV PRN (07:57)
--- NOTE | 2016-10-29 07:59 | Hospitalist Progress Note ---
Assessment and Plan (1) Aspiration pneumonia Status: Acute Assessment and plan: The patient will continue treatment for pneumonia and respiratory failure. The patient has had one bronchoscopy which did not reveal much particulate matter. The patient is making very slow progress towards weaning. We are manipulating the free water in order to maintain his sodium in the normal range. We will recheck electrolytes tomorrow morning. The patient remains on enteral nutrition. Current Visit: Yes (2) Respiratory failure Status: Acute Current Visit: Yes Hospitalist: Subjective Interval history: The patient had change of endotracheal tube yesterday to a larger size and has tolerated more CPAP trial since then. The patient is tolerating tube feeding at 30 cc/h but has increased residual when the goal rate of 40 cc/h was initiated. Exam - Constitutional Vitals: Period Temp Pulse Resp BP Sys/Wilkerson Pulse Ox Last 24 Hr 97.6 F-98.8 F 71-93 8-34 97-137/50-83 92-100 Exam: Constitutional System: Mild distress. No tremulousness. The patient is orally intubated and mechanically ventilated Head: Normocephalic, atraumatic. Ears, Nose and Throat System: No evidence of Otitis or Mastoiditis. No epistaxis or discharge Eyes System: Pupils equal, round, and reactive. Extraocular muscles intact. Neck: Supple, without adenopathy, No jugular venous distention. No thyromegaly , neck mass, or prior surgery apparent. Respiratory System: Chest with few rhonchi in bases to auscultation. Cardiovascular System: Heart with regular rate and rhythm. No murmur. GI System: Abdomen soft, nontender. Normo active bowel sounds present. Musculoskeletal System: limbs with no pedal edema. Full distal pulses. Results - Labs CBC & BMP: 10/29/16 03:13 10/29/16 03:13 Lab Results: I have reviewed the past 24 hour labs
--- NOTE | 2016-10-29 08:06 | XRay Report ---
Referring Physician: Nishant Mishra MD Exam: XR chest 1V portable Date: October 29, 2016 at 3:20 AM Reason: Ventilation management Comparison: Chest one view portable October 28, 2016 Findings: An endotracheal tube and feeding tube are again placed. The cardiac silhouette is upper normal in size. There are scattered opacities within both lower lung zones, mainly on the right. This is concerning for atelectasis and possibly pneumonia. There could also be pulmonary edema. No pneumothorax is identified, but minimal bilateral pleural fluid is is suspected. The osseous structures appear stable. Impression: There are again opacities within both lower lung zones. These opacities are improved on the left but slightly increased on the right. There is also decreased left pleural fluid. PROCEDURE INTERPRETED AT [facility] DEPARTMENT OF RADIOLOGY Final Report Signed by: Dr. Sindhu Swan
[2016-10-29] MEDS: FOLIC ACID 1 MG TABLET PO SCH (08:30)
[2016-10-29] MEDS: POTASSIUM CHLORIDE 20 MEQ/15 ML UDCUP NG SCH (08:30)
[2016-10-29] MEDS: MULTIVITAMIN (CENTRUM) TABLET PO SCH (08:30)
[2016-10-29] MEDS: THIAMINE 100 MG TABLET PO SCH (08:30)
[2016-10-29] MEDS: PANTOPRAZOLE 40 MG VIAL IV SCH (08:31)
[2016-10-29] MEDS: FONDAPARINUX 2.5 MG/0.5 ML SYRINGE SUBCUT SCH (08:31)
[2016-10-29] MEDS: cefTRIAXone 1,000 MG in SODIUM CHLORIDE 0.9% 100 ML IV SCH (08:32)
--- NOTE | 2016-10-29 13:13 | Discharge Summary ---
Hospital Course - Hospital Course Hospital Course: This patient was originally presented to the hospital after he was found on the ground and seizing. It is a possible alcohol withdrawal syndrome. The patient had been ill for several days prior to this incident. The patient received antiseizure medication in the field and was intubated in the emergency room with possible aspiration and respiratory failure. The patient may have had some anoxic brain injury. The patient continues on Dilantin has not had further seizure activity. The patient had therapeutic bronchoscopy and continues on appropriate antibiotics, and inhaled beta agonist nebulized breathing therapies. We have been unable to wean the patient from the ventilator. The patient will move to [facility] today to continue therapy of respiratory failure. The patient is tolerating nutrition via feeding tube. - Time spent with patient Time with patient DS: Greater than 30 minutes Diagnosis - Discharge Diagnosis (1) Aspiration pneumonia Status: Acute (2) Respiratory failure Status: Acute Discharge Plan - Discharge Data Disposition: Disch/Xfer to [facility] Condition at Discharge: Stable Discharge Diet: other (Tube feeding) - Discharge Medications New Clindamycin Inj [Cleocin Inj] 600 mg IV Q8H Dextrose 50% [D50] 25 gm IV PRN PRN #0 vial PRN Reason: Hypoglycemia with IV access Folic Acid Tab 1 mg PO DAILY tablet Fondaparinux [Arixtra] 2.5 mg SUBCUT Q24H syringe Glucagon 1 mg IM PRN PRN #0 vial PRN Reason: Hypoglycemia w/o IV access LORazepam INJ [Ativan Inj] 1 mg IV Q4H PRN #0 vial PRN Reason: Agitation Multivitamin (Centrum) [Centrum Tab] 1 tablet PO DAILY tablet Ondansetron Inj [Zofran Inj] 4 mg IV Q4H PRN #0 vial PRN Reason: Nausea Phenytoin Inj [Dilantin Inj] 100 mg IV Q8H vial Thiamine Tab [Vitamin B1 Tab] 100 mg PO DAILY tablet cefTRIAXone [Rocephin] 1,000 mg IV Q24H vial Albuterol Neb [Proventil Neb] 2.5 mg RESP TX RT Q1H PRN #0 PRN Reason: Shortness Of Breath/Wheezing Albuterol/Ipratropium Neb [Duoneb] 3 ml RESP TX RT Q6H Insulin Regular [HumuLIN R] See Protocol SUBCUT Q6HR unit Potassium Chloride Manjinder 10 meq IV .PER PROTOCOL PRN #0 PRN Reason: Per Protocol - Follow Up or Referral - Forms/Instructions Exam - Constitutional Vitals: Period Temp Pulse Resp BP Sys/Wilkerson Pulse Ox Last 24 Hr 97.0 F-98.8 F 71-93 8-34 97-137/50-86 95-100 - Head Head exam: Present: normal inspection - Respiratory Respiratory exam: Present: prolonged expiratory phase - Cardiovascular Cardiovascular exam: Present: regular rate and rhythm Discharge Results Labs on day of discharge: Labs from last 24 hours 10/29/16 10/29/16 10/29/16 11:47 06:00 03:13 WBC 11.7 D RBC 2.63 L Hgb 10.6 L Hct 29.8 L MCV 113.3 H MCH 40 H MCHC 35.6 RDW 15.3 Plt Count 384 D MPV 10.2 Neut % (Auto) 79.2 H Lymph % (Auto) 8.2 L [place] % (Auto) 9.5 Eos % (Auto) 1.7 Baso % (Auto) 0.3 Neut # (Auto) 9.3 H Lymph # (Auto) 1.0 L [place] # (Auto) 1.1 H Eos # (Auto) 0.2 Baso # (Auto) 0.0 Immature Gran % 1.1 Nucleated RBC % 0.0 Immature Gran # 0.13 Nucleated RBCs # 0.00 Platelet Estimate Normal Hypochromasia 2+ Target Cells 2+ Ovalocytes 1+ ABG pH ABG pCO2 ABG pO2 ABG HCO3 ABG Total CO2 ABG O2 Saturation ABG Base Excess FiO2 Sodium Potassium Chloride Carbon Dioxide Anion Gap BUN Creatinine GFR Calculation BUN/Creatinine Ratio Glucose POC Glucose 87 126 H Calculated Osmolality Calcium Phosphorus Magnesium Prealbumin 10/29/16 10/29/16 10/29/16 03:13 03:13 03:12 WBC RBC Hgb Hct MCV MCH MCHC RDW Plt Count MPV Neut % (Auto) Lymph % (Auto) [place] % (Auto) Eos % (Auto) Baso % (Auto) Neut # (Auto) Lymph # (Auto) [place] # (Auto) Eos # (Auto) Baso # (Auto) Immature Gran % Nucleated RBC % Immature Gran # Nucleated RBCs # Platelet Estimate Hypochromasia Target Cells Ovalocytes ABG pH 7.415 ABG pCO2 44.8 ABG pO2 107.0 H ABG HCO3 27.4 H ABG Total CO2 24.3 ABG O2 Saturation 97.8 ABG Base Excess 3.4 H FiO2 40.00 Sodium 145 Potassium 4.3 Chloride 107 Carbon Dioxide 29 Anion Gap 13.3 BUN 14 Creatinine 0.30 L GFR Calculation 198 BUN/Creatinine Ratio 46.00 H Glucose 103 POC Glucose Calculated Osmolality 288.7 Calcium 8.7 Phosphorus 5.3 H Magnesium 2.1 Prealbumin 14.6 L 10/29/16 10/28/16 00:25 18:19 WBC RBC Hgb Hct MCV MCH MCHC RDW Plt Count MPV Neut % (Auto) Lymph % (Auto) [place] % (Auto) Eos % (Auto) Baso % (Auto) Neut # (Auto) Lymph # (Auto) [place] # (Auto) Eos # (Auto) Baso # (Auto) Immature Gran % Nucleated RBC % Immature Gran # Nucleated RBCs # Platelet Estimate Hypochromasia Target Cells Ovalocytes ABG pH ABG pCO2 ABG pO2 ABG HCO3 ABG Total CO2 ABG O2 Saturation ABG Base Excess FiO2 Sodium Potassium Chloride Carbon Dioxide Anion Gap BUN Creatinine GFR Calculation BUN/Creatinine Ratio Glucose POC Glucose 97 125 H Calculated Osmolality Calcium Phosphorus Magnesium Prealbumin DS: Provider Date of admission: 10/21/16 15:51 Primary care physician: . No PCP Attending physician on admission: Kamran Stewart MD Consults: 10/21/16 16:03 Consult to Physician [CONS] Routine Comment: new onset seizure and possible anoxic brain injury Consulting Provider: Kaden Garcia Consulting Provider Notified: Yes Consult to Specialist Group: Neurology Person Notified: VETO Date Notified: 10/22/16 Time Notified: 08:35 10/21/16 16:07 Consult to Dietitian [CONS] Routine Reason for Dietitian: TF-Initiate/Manage 10/21/16 18:24 Consult to Dietitian [CONS] Routine Reason for Dietitian: Dietary Consult 10/26/16 08:03 Consult to Physical Therapy [CONS] Routine Reason for Physical Therapy: Gait Training 10/27/16 17:55 Consult to Case Mgmt/Social Srvs [CONS] Routine Reason for Case Mgmt/Social Srvs: LTAC 10/28/16 06:30 Consult to Anesthesiology [CONS] Routine Consulting Provider: Reason for Anesthesiology: Intubation Consult Comment: Pt currently intubated, need larger Endotracheal Tube Discharging clinician: Poli Agee MD
[2016-10-29 17:05] VITALS: BP 106/69
== END 2016-10-29 17:28 | DRG 207 ==
LOC: EDUNIT# → EDBD → N.ED 13:19 → SUATTDRO 15:51 → N.EDINP 15:51 → N.ICU 17:27
PROVIDERS: ADMIT Internal Medicine; ATTEND Internal Medicine